=== PATIENT | male | born 1935 | race Hispanic/Latino ===

== ENCOUNTER 2017-11-09 07:02 | Inpatient (IN) | payer MEDICARE ==
[~2017-11-09] VITALS: Ht 162.6 cm; Wt 102.1 kg
[2017-11-09 00:40] VITALS: BP 112/61
[~2017-11-09 07:02] MED LIST: AEC81 PO; DEXT1DRO OP; FAMO20TA8 PO; FINA5TAB41 PO; LINA145C PO; LISI-613 PO; OMEP40CA37 PO; TRAM50TA4 PO; VENL75 PO
[2017-11-09] MEDS ORDERED: ONDANSETRON HCL MDV 20ML 2 MG/ML VIAL ONE (07:40)
[2017-11-09] MEDS ORDERED: MORPHINE SULFATE 4 MG/1ML SYG ONE (07:41)
[2017-11-09 07:51] LABS: APPEARANCE,URINE Clear (CLEAR); BASOPHILS % (AUTO) 0.9 % (0.0-5.0); BILIRUBIN,URINE Negative (NEGATIVE); COLOR,URINE Dark Yellow (YELLOW); EOSINOPHILS % (AUTO) 2.1 % (0.0-8.0); GLUCOSE, URINE (UA) Negative (NEGATIVE); HEMATOCRIT 42.2 % (42-54); KETONES,URINE Negative (NEGATIVE); LEUKOCYTE ESTERASE ,URINE Negative (NEGATIVE); LYMPHOCYTES % (AUTO) 24.5 % (21.0-51.0); MEAN CORPUSCULAR HEMOGLOBIN 26.2 pg (27.0-33.0); MEAN CORPUSCULAR HGB CONC 32.6 g/dL (32.0-36.0); MEAN CORPUSCULAR VOLUME 80.6 fL (79-99); MONOCYTES % (AUTO) 7.8 % (3.0-13.0); NEUTROPHILS % (AUTO) 64.7 % (40.0-77.0); NITRATE,URINE Negative (NEGATIVE); OCCULT BLOOD,URINE Large (NEGATIVE); PLATELET COUNT (AUTO) 307 K/uL (130-400); PROTEIN,URINE POS 1+ (NEGATIVE); RED BLOOD CELL COUNT(AUTO) 5.23 MIL/uL (4.50-6.20); RED CELL DISTRIBUTION WIDTH 17.3 % (11.0-15.5); WHITE BLOOD COUNT (AUTO) 9.6 K/uL (4.8-10.8)
[2017-11-09] MEDS ORDERED: SODIUM CHLORIDE 0.9% 1000ML 1,000 ML IV ONE (08:08)
[2017-11-09 08:11] LABS: BACTERIA,URINE Rare /HPF (None Seen); SQUAMOUS EPITHELIAL CELL,UR Rare /HPF (0-2)
[2017-11-09 08:20] LABS: CREATININE 1.2 mg/dL (0.5-1.5); POTASSIUM 4.1 mmol/L (3.5-5.1)
[2017-11-09 08:25] LABS: ALBUMIN 3.6 g/dL (3.5-5.0); BILIRUBIN,TOTAL 0.3 mg/dL (0.2-1.0); TOTAL PROTEIN, SERUM 7.6 g/dL (6.0-8.3)
[2017-11-09 12:13] LABS: OCCULT BLOOD STOOL SINGLE ONLY POSITIVE (NEGATIVE)
[2017-11-09] MEDS ORDERED: FENTANYL CITRATE PF 50 MCG/1 ML 2ML VIAL ONE (15:20)
[2017-11-09] MEDS ORDERED: METRONIDAZOLE 500MG/100ML BAG 0 ML ONE (15:52)
[2017-11-09] MEDS ORDERED: LEVOFLOXACIN 750 MG/D5W 150 ML 150 ML ONE (17:03)
[2017-11-09] MEDS ORDERED: HYDROMORPHONE HCL 0.5 MG/0.5 ML ML IVP PRN (20:00)
[2017-11-09] MEDS ORDERED: ONDANSETRON HCL MDV 20ML 2 MG/ML VIAL IVP PRN (20:00)
[2017-11-09] MEDS: DEXTROSE 5 %-0.45 % NACL 1,000 ML IV SCH (20:00)
[2017-11-09] MEDS ORDERED: COMPOUND IV REFRIGERATED 1 EACH IVSOLN MISC PRN (21:00)
[2017-11-09] MEDS ORDERED: COMPOUND IV MISC 1 EACH IVSOLN MISC PRN (21:00)
[2017-11-09 21:14] VITALS: BP 133/75
[2017-11-09] MEDS ORDERED: METRONIDAZOLE 500MG/100ML BAG 100 ML ONE (21:48)
[2017-11-09] MEDS ORDERED: METRONIDAZOLE 250MG/50ML 50 ML IV SCH (22:00)
[2017-11-10] MEDS: DEXTROSE 5 %-0.45 % NACL 1,000 ML IV SCH ×3 (03:16→20:00)
[2017-11-10 04:00] VITALS: BP 106/67
[2017-11-10 05:51] LABS: HEMATOCRIT 36.1 % (42-54); MEAN CORPUSCULAR HGB CONC 34.6 g/dL (32.0-36.0); MEAN CORPUSCULAR VOLUME 80.8 fL (79-99); PLATELET COUNT (AUTO) 277 K/uL (130-400); RED BLOOD CELL COUNT(AUTO) 4.47 MIL/uL (4.50-6.20); RED CELL DISTRIBUTION WIDTH 17.6 % (11.0-15.5); WHITE BLOOD COUNT (AUTO) 8.1 K/uL (4.8-10.8)
[2017-11-10 06:02] LABS: ALBUMIN 2.9 g/dL (3.5-5.0); BILIRUBIN,TOTAL 0.3 mg/dL (0.2-1.0); POTASSIUM 3.8 mmol/L (3.5-5.1); TOTAL PROTEIN, SERUM 6.4 g/dL (6.0-8.3)
[2017-11-10 08:14] VITALS: BP 133/79
[2017-11-10] MEDS ORDERED: PRED10TA3 PO (11:22)
[2017-11-10] MEDS ORDERED: SERT100T12 PO (11:22)
[2017-11-10] MEDS ORDERED: PRED5TAB PO (11:22)
[2017-11-10 11:58] VITALS: BP 122/68
[2017-11-10] MEDS: METRONIDAZOLE 500MG/100ML BAG 100 ML IV SCH ×2 (14:24→21:12)
[2017-11-10 15:44] VITALS: BP 127/69
[2017-11-10] MEDS: POLYETHYLENE GLYCOL 3350 17 GM POWD.PACK PO SCH (17:00)
[2017-11-10 19:35] VITALS: BP 127/74
[2017-11-10 23:48] VITALS: BP 111/58
[2017-11-11 03:25] VITALS: BP 131/76
[2017-11-11] MEDS: DEXTROSE 5 %-0.45 % NACL 1,000 ML IV SCH ×2 (04:00→09:26)
[2017-11-11] MEDS: METRONIDAZOLE 500MG/100ML BAG 100 ML IV SCH ×3 (05:27→21:49)
[2017-11-11 08:05] VITALS: BP 140/75
[2017-11-11] MEDS: PANTOPRAZOLE SODIUM 40 MG TABLET.DR PO SCH (09:22)
[2017-11-11] MEDS: POLYETHYLENE GLYCOL 3350 17 GM POWD.PACK PO SCH (09:23)
[2017-11-11 11:56] VITALS: BP 143/71
[2017-11-11 15:55] VITALS: BP 131/77
[2017-11-11] MEDS ORDERED: LEVOFLOXACIN 750 MG/D5W 150 ML 150 ML IV SCH (17:00)
[2017-11-11 19:00] VITALS: BP 142/80
[2017-11-11 23:58] VITALS: BP 111/54
[2017-11-12] VITALS (13 sets, daily range): BP systolic 117–137; BP diastolic 62–89
[2017-11-12] MEDS: DEXTROSE 5 %-0.45 % NACL 1,000 ML IV SCH ×2 (04:00→04:18)
[2017-11-12 04:09] LABS: HEMATOCRIT 36.8 % (42-54); MEAN CORPUSCULAR HEMOGLOBIN 26.7 pg (27.0-33.0); MEAN CORPUSCULAR HGB CONC 33.3 g/dL (32.0-36.0); MEAN CORPUSCULAR VOLUME 80.1 fL (79-99); PLATELET COUNT (AUTO) 269 K/uL (130-400); RED CELL DISTRIBUTION WIDTH 17.1 % (11.0-15.5); WHITE BLOOD COUNT (AUTO) 8.2 K/uL (4.8-10.8)
[2017-11-12 04:30] LABS: CREATININE 1.2 mg/dL (0.5-1.5); POTASSIUM 3.7 mmol/L (3.5-5.1)
[2017-11-12] MEDS: METRONIDAZOLE 500MG/100ML BAG 100 ML IV SCH (05:59)
[2017-11-12] MEDS: POLYETHYLENE GLYCOL 3350 17 GM POWD.PACK PO SCH (08:25)
[2017-11-12] MEDS: PANTOPRAZOLE SODIUM 40 MG TABLET.DR PO SCH (08:25)
[2017-11-12] MEDS ORDERED: SODIUM CHLORIDE 0.9% 1000ML 1,000 ML IV ONE (09:36)
== END 2017-11-12 13:35 | disposition home or self-care (01) | DRG 392 ==
LOC: EDH 07:02 → EDHIP 14:56 → OBSVTOIN 14:56 → 3CH 19:33
PROVIDERS: ADMIT Internal Medicine; ATTEND Internal Medicine
PROC: 0DB68ZX Excision of Stomach, Via Natural or Artificial Opening Endoscopic, Diagnostic (ICD-10-PCS; principal; 2017-11-12)
DX: K52.9 Noninfective gastroenteritis and colitis, unspecified (principal); E86.0 Dehydration; K57.92 Diverticulitis of intestine, part unspecified, without perforation or abscess without bleeding; E78.5 Hyperlipidemia, unspecified; I12.9 Hypertensive chronic kidney disease with stage 1 through stage 4 chronic kidney disease, or unspecified chronic kidney disease; N18.9 Chronic kidney disease, unspecified; K31.7 Polyp of stomach and duodenum; K31.89 Other diseases of stomach and duodenum; Z86.73 Personal history of transient ischemic attack (TIA), and cerebral infarction without residual deficits
CPT/HCPCS: 36415; 74176; 80048; 80053; 81001; 82270; 85025; 85027; 87046; 87205; 87324; 88305; 88312; J1170; J1956; J2270; J3010; J3490; J7030; J7042

== ENCOUNTER → 2018-04-03 | Outpatient (CLI) | payer MEDICARE ==
[~2018-04-03] MED LIST changes: +PRED10TA3 PO; +PRED5TAB PO; +SERT100T12 PO
== END | disposition home or self-care (01) ==
LOC: RAH 16:13
PROVIDERS: ATTEND Internal Medicine
DX: M16.11 Unilateral primary osteoarthritis, right hip (principal)
CPT/HCPCS: 73502

== ENCOUNTER 2018-06-12 15:47 | Observation (INO) | payer MEDICARE ==
[~2018-06-12] VITALS: Ht 160 cm; Wt 106.8 kg
[2018-06-12 16:37] LABS: BASOPHILS % (AUTO) 0.9 % (0.0-5.0); EOSINOPHILS % (AUTO) 4.8 % (0.0-8.0); HEMATOCRIT 41.9 % (42-54); LYMPHOCYTES % (AUTO) 21.2 % (21.0-51.0); MEAN CORPUSCULAR HEMOGLOBIN 26.8 pg (27.0-33.0); MEAN CORPUSCULAR HGB CONC 31.5 g/dL (32.0-36.0); MONOCYTES % (AUTO) 8.3 % (3.0-13.0); NEUTROPHILS % (AUTO) 64.8 % (40.0-77.0); NUCLEATED RED BLOOD CELLS 0.1 % (0.0-0.19); PLATELET COUNT (AUTO) 326 K/uL (130-400); RED BLOOD CELL COUNT(AUTO) 4.93 MIL/uL (4.50-6.20); RED CELL DISTRIBUTION WIDTH 16.9 % (11.0-15.5); WHITE BLOOD COUNT (AUTO) 8.5 K/uL (4.8-10.8)
[2018-06-12 16:45] LABS: CREATININE 1.1 mg/dL (0.5-1.5); POTASSIUM 3.8 mmol/L (3.5-5.1)
[2018-06-12 16:50] LABS: ALBUMIN 3.2 g/dL (3.5-5.0); BILIRUBIN,DIRECT 0.1 mg/dL (0.0-0.3); BILIRUBIN,TOTAL 0.2 mg/dL (0.2-1.0); TOTAL PROTEIN, SERUM 7.2 g/dL (6.0-8.3)
[2018-06-12] MEDS ORDERED: CLONIDINE HCL 0.1 MG TABLET PO PRN (17:00)
[2018-06-12] MEDS ORDERED: ALBUTEROL SULFATE 0.083% 2.5 MG/3 ML INH IH PRN (17:00)
[2018-06-12] MEDS ORDERED: GUAIFENESIN-DM 200/20 MG 10 ML PO PRN (17:00)
[2018-06-12] MEDS ORDERED: ZOLPIDEM TARTRATE 5 MG TAB PO PRN (17:00)
[2018-06-12] MEDS ORDERED: ONDANSETRON HCL 4 MG/2 ML VIAL IVP PRN (17:00)
[2018-06-12] MEDS: CEFTRIAXONE SODIUM 1 GM IVP SCH (17:00)
[2018-06-12] MEDS: METHYLPREDNISOLONE SOD SUCC 125MG/2ML VIAL IVP SCH ×2 (17:00→21:00)
[2018-06-12] MEDS ORDERED: METHYLPREDNISOLONE SOD SUCC 40MG/ML 1ML ONE (17:02)
[2018-06-12] MEDS ORDERED: SODIUM CHLORIDE 0.9% 50 ML IV ONE (17:03)
[2018-06-12] MEDS ORDERED: CEFTRIAXONE SODIUM 1 GM ONE (17:03)
[2018-06-12] MEDS: IPRATROPIUM/ALBUTEROL SULFATE 3 ML SOLUTION IH SCH (17:53)
[2018-06-12] MEDS ORDERED: LEVOFLOXACIN 500 MG/D5W 100 ML 100 ML IV SCH (18:00)
[2018-06-12] MEDS ORDERED: LEVOFLOXACIN 500 MG/D5W 100 ML 100 ML ONE (18:40)
[2018-06-12] MEDS ORDERED: 1/2 NORMAL SALINE 1,000 ML IV ONE (19:45)
[2018-06-12] MEDS: FAMOTIDINE 20MG TAB 20 MG TAB PO SCH (22:58)
[2018-06-12] MEDS: 1/2 NORMAL SALINE 1,000 ML IV SCH (22:58)
[2018-06-12 23:00] VITALS: BP 151/85
[2018-06-13] MEDS: IPRATROPIUM/ALBUTEROL SULFATE 3 ML SOLUTION IH SCH ×5 (01:00→23:25)
[2018-06-13] MEDS ORDERED: SERT100T12 PO (01:22)
[2018-06-13] MEDS ORDERED: AUD IH (01:22)
[2018-06-13] MEDS ORDERED: FINA5TAB2 PO (01:22)
[2018-06-13] MEDS ORDERED: PANT40TA25 PO (01:22)
[2018-06-13 03:30] VITALS: BP 118/55
[2018-06-13 04:54] LABS: MEAN CORPUSCULAR HEMOGLOBIN 27.9 pg (27.0-33.0); MEAN CORPUSCULAR HGB CONC 32.8 g/dL (32.0-36.0); PLATELET COUNT (AUTO) 342 K/uL (130-400); RED BLOOD CELL COUNT(AUTO) 4.71 MIL/uL (4.50-6.20); RED CELL DISTRIBUTION WIDTH 16.6 % (11.0-15.5); WHITE BLOOD COUNT (AUTO) 9.2 K/uL (4.8-10.8)
[2018-06-13 05:09] LABS: ALANINE AMINOTRANSFERASE 19 U/L (12-78); ALBUMIN 3.1 g/dL (3.5-5.0); ASPARTATE AMINOTRANSFERASE 14 U/L (10-37); BILIRUBIN,DIRECT < 0.1 mg/dL (0.0-0.3); BILIRUBIN,TOTAL 0.2 mg/dL (0.2-1.0); CARBON DIOXIDE 31 mmol/L (21-32); CHLORIDE 105 mmol/L (101-111); CREATININE 1.1 mg/dL (0.5-1.5); GLOMERULAR FILTR. RATE CALC 68 mL/min (>60); GLUCOSE,RANDOM 138 mg/dL (70-105); POTASSIUM 4.4 mmol/L (3.5-5.1); SODIUM SERUM 143 mmol/L (136-145); TOTAL PROTEIN, SERUM 6.9 g/dL (6.0-8.3); UREA NITROGEN, BLOOD 18 mg/dL (7-18)
[2018-06-13] MEDS: FAMOTIDINE 20MG TAB 20 MG TAB PO SCH ×2 (08:01→20:47)
[2018-06-13] MEDS: ENOXAPARIN SODIUM 40 MG/0.4 ML SYRINGE SQ SCH (08:01)
[2018-06-13 08:06] VITALS: BP 145/70
[2018-06-13] MEDS: METHYLPREDNISOLONE SOD SUCC 125MG/2ML VIAL IVP SCH ×2 (09:00→20:47)
[2018-06-13 11:49] VITALS: BP 140/69
[2018-06-13] MEDS: 1/2 NORMAL SALINE 1,000 ML IV SCH (13:00)
[2018-06-13] MEDS: CEFTRIAXONE SODIUM 1 GM IVP SCH (15:20)
[2018-06-13 16:36] VITALS: BP 138/75
[2018-06-13 20:00] VITALS: BP 131/65
[2018-06-14 00:33] VITALS: BP 136/77
[2018-06-14 03:57] VITALS: BP 131/71
[2018-06-14] MEDS: IPRATROPIUM/ALBUTEROL SULFATE 3 ML SOLUTION IH SCH ×2 (06:09→11:12)
[2018-06-14 06:15] LABS: MEAN CORPUSCULAR HEMOGLOBIN 27.3 pg (27.0-33.0); MEAN CORPUSCULAR HGB CONC 32.1 g/dL (32.0-36.0); PLATELET COUNT (AUTO) 315 K/uL (130-400); RED CELL DISTRIBUTION WIDTH 17.1 % (11.0-15.5); WHITE BLOOD COUNT (AUTO) 16.4 K/uL (4.8-10.8)
[2018-06-14 06:26] LABS: BILIRUBIN,TOTAL 0.2 mg/dL (0.2-1.0); CREATININE 1.1 mg/dL (0.5-1.5); POTASSIUM 4.4 mmol/L (3.5-5.1); TOTAL PROTEIN, SERUM 6.7 g/dL (6.0-8.3)
[2018-06-14 08:00] VITALS: BP 121/72
[2018-06-14] MEDS: FAMOTIDINE 20MG TAB 20 MG TAB PO SCH (09:05)
[2018-06-14] MEDS: ENOXAPARIN SODIUM 40 MG/0.4 ML SYRINGE SQ SCH (09:05)
[2018-06-14] MEDS: METHYLPREDNISOLONE SOD SUCC 125MG/2ML VIAL IVP SCH (09:05)
== END 2018-06-14 12:24 | disposition home or self-care (01) ==
LOC: EDH 15:47 → EDHIP 17:15 → 4CH 21:43
PROVIDERS: ADMIT Internal Medicine; ATTEND Internal Medicine
DX: J44.0 Chronic obstructive pulmonary disease with (acute) lower respiratory infection (principal); J18.9 Pneumonia, unspecified organism; J44.1 Chronic obstructive pulmonary disease with (acute) exacerbation; J96.90 Respiratory failure, unspecified, unspecified whether with hypoxia or hypercapnia; N40.0 Benign prostatic hyperplasia without lower urinary tract symptoms; I12.9 Hypertensive chronic kidney disease with stage 1 through stage 4 chronic kidney disease, or unspecified chronic kidney disease; N18.3 Chronic kidney disease, stage 3 (moderate); G20 Parkinson's disease; F32.9 Major depressive disorder, single episode, unspecified; Z79.899 Other long term (current) drug therapy
CPT/HCPCS: 36415 ×3; 71045; 80048; 80053 ×2; 80076; 82248; 85025; 85027 ×2; 94640 ×8; 94664; 96372 ×2; 96374; 96375; 96376; 99284; A4218; G0378 ×43; J0696 ×2; J1650 ×2; J1956; J2405; J2920; J2930 ×3

== ENCOUNTER 2018-08-26 17:13 | Inpatient (IN) | payer MEDICARE ==
[~2018-08-26] VITALS: Ht 167.6 cm; Wt 106.6 kg
[~2018-08-26 17:13] MED LIST changes: +AUD IH; +FINA5TAB2 PO; -FINA5TAB41 PO; +PANT40TA25 PO; -PRED10TA3 PO; -PRED5TAB PO
[2018-08-26 18:46] LABS: EOSINOPHILS % (AUTO) 5.5 % (0.0-8.0); HEMATOCRIT 42.7 % (42-54); LYMPHOCYTES % (AUTO) 18.8 % (21.0-51.0); MEAN CORPUSCULAR HEMOGLOBIN 27.9 pg (27.0-33.0); MEAN CORPUSCULAR HGB CONC 32.8 g/dL (32.0-36.0); MONOCYTES % (AUTO) 7.8 % (3.0-13.0); NEUTROPHILS % (AUTO) 66.9 % (40.0-77.0); PLATELET COUNT (AUTO) 302 K/uL (130-400); RED BLOOD CELL COUNT(AUTO) 5.02 MIL/uL (4.50-6.20); RED CELL DISTRIBUTION WIDTH 16.6 % (11.0-15.5); WHITE BLOOD COUNT (AUTO) 9.1 K/uL (4.8-10.8)
[2018-08-26 19:05] LABS: CARBON DIOXIDE 30 mmol/L (21-32); CHLORIDE 103 mmol/L (101-111); CREATININE 1.1 mg/dL (0.5-1.5); GLOMERULAR FILTR. RATE CALC 68 mL/min (>60); GLUCOSE,RANDOM 126 mg/dL (70-105); POTASSIUM 3.8 mmol/L (3.5-5.1); SODIUM SERUM 144 mmol/L (136-145); UREA NITROGEN, BLOOD 19 mg/dL (7-18)
[2018-08-26 19:08] LABS: ALANINE AMINOTRANSFERASE 22 U/L (12-78); ALBUMIN 3.6 g/dL (3.5-5.0); ASPARTATE AMINOTRANSFERASE 23 U/L (10-37); BILIRUBIN,DIRECT < 0.1 mg/dL (0.0-0.3); BILIRUBIN,TOTAL 0.3 mg/dL (0.2-1.0); TOTAL PROTEIN, SERUM 7.2 g/dL (6.0-8.3)
[2018-08-26] MEDS ORDERED: LEVO500T2 PO (19:55)
[2018-08-26] MEDS ORDERED: METR500T PO (19:55)
[2018-08-26] MEDS ORDERED: NITR100C4 PO (19:55)
[2018-08-26 20:00] VITALS: BP 147/83
[2018-08-26] MEDS ORDERED: ALBUTEROL SULFATE 0.083% 2.5 MG/3 ML INH IH PRN (20:00)
[2018-08-26] MEDS ORDERED: DiphenhydrAMINE HCL 50 MG/ML VIAL IV PRN (20:00)
[2018-08-26] MEDS ORDERED: NITROGLYCERIN 0.4 MG SL TAB SL PRN (20:00)
[2018-08-26] MEDS ORDERED: LACTULOSE 20 GM/30 ML UDCUP PO PRN (20:00)
[2018-08-26] MEDS ORDERED: ZOLPIDEM TARTRATE 5 MG TAB PO PRN (20:00)
[2018-08-26] MEDS ORDERED: ONDANSETRON HCL MDV 20ML 2 MG/ML VIAL IVP PRN (20:00)
[2018-08-26] MEDS ORDERED: ACETAMINOPHEN 325 MG TAB PO PRN (20:00)
[2018-08-26] MEDS: METRONIDAZOLE 500 MG TABLET PO SCH (21:31)
[2018-08-26] MEDS: SERTRALINE HCL 50 MG TABLET PO SCH (21:31)
[2018-08-26] MEDS: AZITHROMYCIN 500MG+NS 250ML 250 ML IV SCH (21:31)
[2018-08-26] MEDS: NITROFURANTOIN MONOHYD/M-CRYST 100 MG CAPSULE PO SCH (21:31)
[2018-08-26] MEDS: CEFTRIAXONE SODIUM 1 GM IVP SCH (21:31)
[2018-08-26] MEDS: FAMOTIDINE 20MG TAB 20 MG TAB PO SCH (21:31)
[2018-08-26] MEDS: METHYLPREDNISOLONE SOD SUCC 125MG/2ML VIAL IVP SCH (21:31)
[2018-08-26] MEDS: SODIUM CHLORIDE 0.9% 1000ML 1,000 ML IV SCH (21:31)
[2018-08-26] MEDS: ENOXAPARIN SODIUM 30 MG/0.3 ML SQ SCH (21:45)
[2018-08-26] MEDS: IPRATROPIUM/ALBUTEROL SULFATE 3 ML SOLUTION IH SCH ×2 (21:52→23:30)
--- NOTE | 2018-08-26 22:25 | NUR ---
X-RAY RADIOLOGY IN TO DO CHEST X-RAY AT BEDSIDE. PT STILL WITH SOB WITH EXERTION. PROVIDED ANOTHER PILLOW FOR USE. RE-POSITIONED COMFORTABLY IN BED WITH HOB ELEVATED. KEPT ON O2 AT 2LPM VIA NC. KEPT COMFORTABLE IN BED. CALL LIGHT WITHIN REACH. WILL MONITOR PT.
[2018-08-26 23:23] VITALS: BP 136/76
[2018-08-27 03:11] VITALS: BP 116/70
[2018-08-27 04:53] LABS: HEMATOCRIT 41.1 % (42-54); MEAN CORPUSCULAR HEMOGLOBIN 27.8 pg (27.0-33.0); MEAN CORPUSCULAR HGB CONC 32.5 g/dL (32.0-36.0); MEAN CORPUSCULAR VOLUME 85.4 fL (79-99); PLATELET COUNT (AUTO) 278 K/uL (130-400); RED BLOOD CELL COUNT(AUTO) 4.82 MIL/uL (4.50-6.20); RED CELL DISTRIBUTION WIDTH 16.7 % (11.0-15.5); WHITE BLOOD COUNT (AUTO) 6.9 K/uL (4.8-10.8)
[2018-08-27 05:11] LABS: ALANINE AMINOTRANSFERASE 17 U/L (12-78); ALBUMIN 3.3 g/dL (3.5-5.0); ASPARTATE AMINOTRANSFERASE 23 U/L (10-37); BILIRUBIN,DIRECT < 0.1 mg/dL (0.0-0.3); BILIRUBIN,TOTAL 0.2 mg/dL (0.2-1.0); CARBON DIOXIDE 29 mmol/L (21-32); CHLORIDE 104 mmol/L (101-111); GLOMERULAR FILTR. RATE CALC 76 mL/min (>60); GLUCOSE,RANDOM 166 mg/dL (70-105); POTASSIUM 4.3 mmol/L (3.5-5.1); SODIUM SERUM 143 mmol/L (136-145); TOTAL PROTEIN, SERUM 6.7 g/dL (6.0-8.3); UREA NITROGEN, BLOOD 16 mg/dL (7-18)
[2018-08-27] MEDS: METRONIDAZOLE 500 MG TABLET PO SCH ×3 (05:20→20:41)
[2018-08-27] MEDS: IPRATROPIUM/ALBUTEROL SULFATE 3 ML SOLUTION IH SCH ×3 (06:15→17:39)
[2018-08-27 08:00] VITALS: BP 143/83
[2018-08-27] MEDS ORDERED: LEVOFLOXACIN 500 MG TABLET PO SCH (09:00)
[2018-08-27] MEDS ORDERED: FAMOTIDINE 20MG TAB 20 MG TAB PO SCH (09:00)
[2018-08-27] MEDS: METHYLPREDNISOLONE SOD SUCC 125MG/2ML VIAL IVP SCH ×2 (09:00→20:42)
[2018-08-27] MEDS: Linaclotide (Linzess) 145 MCG PO SCH (09:00)
[2018-08-27] MEDS: PANTOPRAZOLE SODIUM 40 MG TABLET.DR PO SCH (09:01)
[2018-08-27] MEDS: FAMOTIDINE 20MG TAB 20 MG TAB PO SCH ×2 (09:01→20:41)
[2018-08-27] MEDS: LISINOPRIL 20 MG TABLET PO SCH (09:01)
[2018-08-27] MEDS: FINASTERIDE 5 MG TABLET PO SCH (09:01)
[2018-08-27] MEDS: SERTRALINE HCL 50 MG TABLET PO SCH ×2 (09:01→20:41)
[2018-08-27] MEDS: ENOXAPARIN SODIUM 30 MG/0.3 ML SQ SCH (09:02)
[2018-08-27] MEDS: NITROFURANTOIN MONOHYD/M-CRYST 100 MG CAPSULE PO SCH ×2 (09:05→20:42)
[2018-08-27 12:00] VITALS: BP 129/59
[2018-08-27 14:29] LABS: CREATINE KINASE, TOTAL 105 U/L (21-232); MYOGLOBIN 136 ng/mL (10-92); TROPONIN I < 0.04 ng/mL (0.00-0.06)
--- NOTE | 2018-08-27 15:49 | NUR ---
DCP CM met with pt and family discussed dc plans. Pt is independent prior to admission, lives at home with spouse, daughter lives close by. Pt has a cane, and provider 4hrs/day daughter Negra is pt's provider. Feels safe to go back home, spouse and daughter able to assist with transportation and needs as necessary. DC plan to home once stable. CM to cont to follow up. Addendum: 08/27/18 at 1550 by ANALIA FARLEY LVN CM Amended: Links added.
[2018-08-27 16:00] VITALS: BP 143/88
[2018-08-27] MEDS: ACETYLCYSTEINE 20% 200MG/ML 4ML VIAL IH SCH ×2 (17:45→22:53)
[2018-08-27 19:54] LABS: CREATINE KINASE, TOTAL 169 U/L (21-232); MYOGLOBIN 229 ng/mL (10-92); TROPONIN I < 0.04 ng/mL (0.00-0.06)
[2018-08-27 20:00] VITALS: BP 133/80
[2018-08-27] MEDS: CEFTRIAXONE SODIUM 1 GM IVP SCH (20:42)
[2018-08-27] MEDS: AZITHROMYCIN 500MG+NS 250ML 250 ML IV SCH (20:42)
[2018-08-27] MEDS: SODIUM CHLORIDE 0.9% 1000ML 1,000 ML IV SCH (20:43)
[2018-08-28] VITALS: BP 144/80
[2018-08-28 02:13] LABS: CREATINE KINASE, TOTAL 275 U/L (21-232); MYOGLOBIN 334 ng/mL (10-92); TROPONIN I < 0.04 ng/mL (0.00-0.06)
[2018-08-28 04:00] VITALS: BP 126/93
[2018-08-28] MEDS: METRONIDAZOLE 500 MG TABLET PO SCH ×2 (04:24→16:18)
[2018-08-28] MEDS: IPRATROPIUM/ALBUTEROL SULFATE 3 ML SOLUTION IH SCH ×3 (06:31→10:58)
[2018-08-28] MEDS: ACETYLCYSTEINE 20% 200MG/ML 4ML VIAL IH SCH ×2 (06:32→10:58)
[2018-08-28 08:00] VITALS: BP 137/77
[2018-08-28] MEDS: Linaclotide (Linzess) 145 MCG PO SCH (09:00)
[2018-08-28] MEDS: FAMOTIDINE 20MG TAB 20 MG TAB PO SCH (09:12)
[2018-08-28] MEDS: NITROFURANTOIN MONOHYD/M-CRYST 100 MG CAPSULE PO SCH (09:12)
[2018-08-28] MEDS: METHYLPREDNISOLONE SOD SUCC 125MG/2ML VIAL IVP SCH (09:12)
[2018-08-28] MEDS: SERTRALINE HCL 50 MG TABLET PO SCH (09:13)
[2018-08-28] MEDS: FINASTERIDE 5 MG TABLET PO SCH (09:13)
[2018-08-28] MEDS: PANTOPRAZOLE SODIUM 40 MG TABLET.DR PO SCH (09:13)
[2018-08-28] MEDS: LISINOPRIL 20 MG TABLET PO SCH (09:13)
[2018-08-28] MEDS: ENOXAPARIN SODIUM 30 MG/0.3 ML SQ SCH (09:14)
[2018-08-28] MEDS: SODIUM CHLORIDE 0.9% 1000ML 1,000 ML IV SCH (11:30)
--- NOTE | 2018-08-28 17:55 | NUR ---
PT D/C HOME PT AOX3, STABLE AND READY FOR D/C, D/C INSTRUCTION GIVEN, PT VERBALIZED UNDERSTANDING, INSTRUCTION TO FOLLOW UP WITH PRIMARY CARE PROVIDER, TAKE ABX THOROUGHLY AND FULLY, IV OUT, NO COMPLICATION NOTED, PT D/C AND ACCOMPANIED BY SPOUSE HOME.
== END 2018-08-28 17:50 | disposition home or self-care (01) | DRG 191 ==
LOC: EDH 17:13 → OBSVTOIN 17:14 → INTOOBSV 17:14 → EDHIP 17:14 → 3AH 19:01
PROVIDERS: ADMIT Internal Medicine; ATTEND Internal Medicine
DX: J44.1 Chronic obstructive pulmonary disease with (acute) exacerbation (principal); N39.0 Urinary tract infection, site not specified; I10 Essential (primary) hypertension; I45.10 Unspecified right bundle-branch block; N40.0 Benign prostatic hyperplasia without lower urinary tract symptoms; F32.9 Major depressive disorder, single episode, unspecified; I25.10 Atherosclerotic heart disease of native coronary artery without angina pectoris; J20.9 Acute bronchitis, unspecified; J44.0 Chronic obstructive pulmonary disease with (acute) lower respiratory infection
CPT/HCPCS: 36415; 71046; 80048; 80076; 82550; 83874; 84484; 85025; 85027; 87071; 87205; 93306; 94640; 94664; A4218; G0378; J0456; J0696; J1650; J2930; J7030; J7608

== ENCOUNTER 2018-11-22 06:31 | Observation (INO) | payer MEDICARE ==
[~2018-11-22 06:31] MED LIST changes: -AEC81 PO; -DEXT1DRO OP; -OMEP40CA37 PO; -TRAM50TA4 PO; -VENL75 PO
[2018-11-22 07:13] LABS: EOSINOPHILS % (AUTO) 1.5 % (0.0-8.0); HEMATOCRIT 39.6 % (42-54); LYMPHOCYTES % (AUTO) 11.3 % (21.0-51.0); MEAN CORPUSCULAR HEMOGLOBIN 25.9 pg (27.0-33.0); MEAN CORPUSCULAR HGB CONC 31.9 g/dL (32.0-36.0); MEAN CORPUSCULAR VOLUME 81.2 fL (79-99); MONOCYTES % (AUTO) 6.4 % (3.0-13.0); NEUTROPHILS % (AUTO) 79.8 % (40.0-77.0); PLATELET COUNT (AUTO) 360 K/uL (130-400); RED BLOOD CELL COUNT(AUTO) 4.87 MIL/uL (4.50-6.20); RED CELL DISTRIBUTION WIDTH 16.3 % (11.0-15.5); WHITE BLOOD COUNT (AUTO) 14.1 K/uL (4.8-10.8)
[2018-11-22 07:15] LABS: APPEARANCE,URINE TURBID (CLEAR); BILIRUBIN,URINE SMALL (NEGATIVE); COLOR,URINE YELLOW (YELLOW); GLUCOSE, URINE (UA) NEGATIVE (NEGATIVE); KETONES,URINE 5 mg/dL (NEGATIVE); LEUKOCYTE ESTERASE ,URINE NEGATIVE (NEGATIVE); NITRATE,URINE NEGATIVE (NEGATIVE); OCCULT BLOOD,URINE MODERATE (NEGATIVE); PH,URINE 5.5 (5.0-8.0); PROTEIN,URINE 30 mg/dL (NEGATIVE)
[2018-11-22 07:27] LABS: CREATININE 1.7 mg/dL (0.5-1.5)
[2018-11-22 07:30] LABS: INR 0.93 (0.85-1.15); PARTIAL THROMBOPLASTIN TIME 26.1 SEC (26.3-35.5); PROTHROMBIN TIME 9.8 SEC (9.6-11.6)
[2018-11-22 07:33] LABS: ALBUMIN 3.7 g/dL (3.5-5.0); BILIRUBIN,TOTAL 0.3 mg/dL (0.2-1.0); TOTAL PROTEIN, SERUM 7.6 g/dL (6.0-8.3)
[2018-11-22] MEDS ORDERED: MORPHINE SULFATE 4 MG/1ML SYG ONE (07:40)
[2018-11-22 07:44] LABS: AMORPHOUS SEDIMENT,UR Many /LPF (None Seen); BACTERIA,URINE Few /HPF (None Seen); CALCIUM OXALATE CRYSTALS,UR Few /LPF (None Seen); RBC,URINE 0-1 /HPF (0-1); SQUAMOUS EPITHELIAL CELL,UR Rare /HPF (0-2)
[2018-11-22] MEDS ORDERED: CEFTRIAXONE SODIUM 1 GM ONE (08:20)
[2018-11-22] MEDS ORDERED: HYDROMORPHONE 1 MG/1 ML AMP ONE (08:41)
[2018-11-22] MEDS ORDERED: SODIUM CHLORIDE 0.9% 10 ML VIAL IVP PRN (11:30)
[2018-11-22] MEDS ORDERED: LEVOFLOXACIN 500 MG/D5W 100 ML 100 ML IV SCH (11:30)
[2018-11-22] MEDS ORDERED: ACETAMINOPHEN 325 MG TAB PO PRN (11:30)
[2018-11-22] MEDS ORDERED: 1/2 NORMAL SALINE 1,000 ML IV SCH (11:30)
--- NOTE | 2018-11-22 12:10 | NUR ---
ER ADMIT TO ROOM 305, AWAKE,ALERT ORIENTED,IVF INFUSING VIA 18G RT. HAND. HAD LT. FLANK PAIN WHICH STARTED LAST NIGHT. PRESENTED TO ER BUT STATES WAS MEDICATED AND FEELS MUCH BETTER NOW. STATES HAD THIS PAIN IN THE PAST BUT NOT SEVERE.
[2018-11-22 13:19] VITALS: BP 116/64
[2018-11-22 16:00] VITALS: BP 111/64
--- NOTE | 2018-11-22 17:00 | NUR ---
CO OF FEELING DIZZY ABD STATES THIS HAS BEEN GOING ON FOR 2 TO 3 WEEKS, O2 SATS IN THE HIGH 80S, (88).PLACED ON 3 LITERS OF O2 AND SATS SHOT UP TO 98 RIGHT AWAY, HOPEFULLY WITH GOOS SATS DIZZY C/O WILL IMPROVE.
[2018-11-22 19:33] VITALS: BP 129/66
[2018-11-22] MEDS ORDERED: ALBUTEROL SULFATE 0.083% 2.5 MG/3 ML INH IH PRN (22:00)
[2018-11-23 00:20] VITALS: BP 132/73
[2018-11-23 04:17] VITALS: BP 111/41
[2018-11-23 06:16] LABS: HEMATOCRIT 34.3 % (42-54); MEAN CORPUSCULAR HEMOGLOBIN 26.4 pg (27.0-33.0); MEAN CORPUSCULAR HGB CONC 32.4 g/dL (32.0-36.0); MEAN CORPUSCULAR VOLUME 81.4 fL (79-99); NUCLEATED RED BLOOD CELLS 0.1 % (0.0-0.19); PLATELET COUNT (AUTO) 275 K/uL (130-400); RED BLOOD CELL COUNT(AUTO) 4.21 MIL/uL (4.50-6.20); RED CELL DISTRIBUTION WIDTH 16.3 % (11.0-15.5); WHITE BLOOD COUNT (AUTO) 7.3 K/uL (4.8-10.8)
[2018-11-23 06:36] LABS: ALBUMIN 2.9 g/dL (3.5-5.0); BILIRUBIN,TOTAL 0.2 mg/dL (0.2-1.0); CREATININE 1.1 mg/dL (0.5-1.5); POTASSIUM 3.9 mmol/L (3.5-5.1); TOTAL PROTEIN, SERUM 6.4 g/dL (6.0-8.3)
[2018-11-23 08:00] VITALS: BP 128/73
[2018-11-23] MEDS ORDERED: LISINOPRIL 20 MG TABLET PO SCH (09:00)
[2018-11-23] MEDS ORDERED: Linaclotide (Linzess) 145 MCG PO SCH (09:00)
[2018-11-23] MEDS ORDERED: FAMOTIDINE 20MG TAB 20 MG TAB PO SCH (09:00)
[2018-11-23] MEDS ORDERED: PANTOPRAZOLE SODIUM 40 MG TABLET.DR PO SCH (09:00)
[2018-11-23] MEDS ORDERED: FINASTERIDE 5 MG TABLET PO SCH (09:00)
[2018-11-23] MEDS ORDERED: SERTRALINE HCL 50 MG TABLET PO SCH (09:00)
[2018-11-23] MEDS ORDERED: CEFTRIAXONE SODIUM 1 GM IVP SCH (09:00)
[2018-11-23 11:00] VITALS: BP 125/62
[2018-11-23] MEDS ORDERED: CEPH-578 PO (15:13)
--- NOTE | 2018-11-23 16:43 | NUR ---
PATIENT WAS GIVEN ALL DISCHARGE INSTRUCTIONS AND FOLLOW-UP APPOINTMENT WITH PCP TOMORROW. HE WAS NOTIFIED TO PICK-UP HIS PRESCRIPTION WHICH I HAD CALLED TO HIS PREFERRED PHARMACY AND HE VERBALIZED UNDERSTANDING. IV LINE REMOVED WITHOUT COMPLICATION. PATIENT REQUESTED TO HAVE DINNER BEFORE HE LEAVES.
--- NOTE | 2018-11-23 16:46 | NUR ---
LEFT THE UNIT VIA W/C IN STABLE CONDITION IN CARE OF SPOUSE.
== END 2018-11-23 16:50 | disposition home or self-care (01) ==
LOC: EDH 06:31 → EDHIP 10:06 → 3BH 12:18
PROVIDERS: ADMIT Internal Medicine; ATTEND Internal Medicine
DX: N23 Unspecified renal colic (principal); N39.0 Urinary tract infection, site not specified; I10 Essential (primary) hypertension; R11.2 Nausea with vomiting, unspecified; I25.10 Atherosclerotic heart disease of native coronary artery without angina pectoris; J42 Unspecified chronic bronchitis; E78.5 Hyperlipidemia, unspecified; Z79.899 Other long term (current) drug therapy; Z79.01 Long term (current) use of anticoagulants
CPT/HCPCS: 36415 ×2; 74176; 80053 ×2; 81001; 82550; 83605 ×2; 83690; 84484; 85025; 85027; 85610; 85730; 87040; 87088; 94664; 96361 ×2; 96365; 96375; 99284; A4218; G0378 ×31; J0696 ×2; J1170; J1956; J2270

== ENCOUNTER 2018-12-09 11:15 | Inpatient (IN) | payer MEDICARE ==
[~2018-12-09] VITALS: Ht 162.6 cm; Wt 106.3 kg
[~2018-12-09 11:15] MED LIST changes: +ALBU8.5H8 IH; -AUD IH; +DOXY100C2 PO; +HYDR-4064 PO; -LINA145C PO; +LINA72CA PO; +MECL-129 PO
[2018-12-09] MEDS ORDERED: SODIUM CHLORIDE 0.9% 1000ML 1,000 ML IV ONE (11:22)
[2018-12-09 11:38] LABS: BASOPHILS % (AUTO) 0.7 % (0.0-5.0); EOSINOPHILS % (AUTO) 0.6 % (0.0-8.0); HEMATOCRIT 40.4 % (42-54); MEAN CORPUSCULAR HGB CONC 32.2 g/dL (32.0-36.0); MEAN CORPUSCULAR VOLUME 80.9 fL (79-99); MONOCYTES % (AUTO) 5.8 % (3.0-13.0); NEUTROPHILS % (AUTO) 75.9 % (40.0-77.0); PLATELET COUNT (AUTO) 408 K/uL (130-400); RED CELL DISTRIBUTION WIDTH 17.1 % (11.0-15.5); WHITE BLOOD COUNT (AUTO) 11.8 K/uL (4.8-10.8)
[2018-12-09] MEDS ORDERED: METOPROLOL TARTRATE 1 MG/ML 5ML VIAL IV ONE (11:45)
[2018-12-09 11:54] LABS: CREATININE 1.1 mg/dL (0.5-1.5); POTASSIUM 3.4 mmol/L (3.5-5.1)
[2018-12-09] MEDS ORDERED: ASPIRIN 325 MG TABLET ONE (11:56)
[2018-12-09 12:00] LABS: INR 0.98 (0.85-1.15); PARTIAL THROMBOPLASTIN TIME 24.9 SEC (26.3-35.5); PROTHROMBIN TIME 10.3 SEC (9.6-11.6)
[2018-12-09] MEDS ORDERED: CEFTRIAXONE SODIUM 1 GM ONE (12:00)
[2018-12-09] MEDS ORDERED: LEVOFLOXACIN 500 MG/D5W 100 ML 100 ML ONE (12:00)
[2018-12-09] MEDS ORDERED: POTASSIUM CHLORIDE 20 MEQ ERTAB PO ONE (12:00)
[2018-12-09 12:01] LABS: ALBUMIN 3.4 g/dL (3.5-5.0); BILIRUBIN,TOTAL 0.3 mg/dL (0.2-1.0); TOTAL PROTEIN, SERUM 7.3 g/dL (6.0-8.3)
[2018-12-09 12:14] LABS: B-TYPE NATRIURETIC PEPTIDE 134 pg/mL (0-100)
[2018-12-09 13:39] LABS: APPEARANCE,URINE Clear (CLEAR); BILIRUBIN,URINE Negative (NEGATIVE); COLOR,URINE Yellow (YELLOW); GLUCOSE, URINE (UA) Negative (NEGATIVE); KETONES,URINE Negative (NEGATIVE); LEUKOCYTE ESTERASE ,URINE Trace (NEGATIVE); NITRATE,URINE Negative (NEGATIVE); OCCULT BLOOD,URINE Negative (NEGATIVE); PROTEIN,URINE Trace mg/dL (NEGATIVE); UROBILINOGEN,URINE 0.2 mg/dL (0.2-1.0)
[2018-12-09 13:51] LABS: RBC,URINE 0-1 /HPF (0-1); WBC,URINE 0-1 /HPF (0-1)
[2018-12-09 13:53] LABS: BACTERIA,URINE Rare /HPF (None Seen); MUCUS,URINE Rare LPF (None Seen); SQUAMOUS EPITHELIAL CELL,UR Rare /HPF (0-2)
[2018-12-09] MEDS: ENOXAPARIN SODIUM 30 MG/0.3 ML SQ SCH (15:26)
[2018-12-09 18:34] LABS: CREATINE KINASE, TOTAL 61 U/L (21-232); MYOGLOBIN 53 ng/mL (10-92); TROPONIN I < 0.04 ng/mL (0.00-0.06)
[2018-12-09] MEDS: ALBUTEROL SULFATE 0.083% 2.5 MG/3 ML INH IH SCH ×2 (19:11→23:37)
[2018-12-10 01:06] LABS: CREATINE KINASE, TOTAL 46 U/L (21-232); MYOGLOBIN 46 ng/mL (10-92); TROPONIN I < 0.04 ng/mL (0.00-0.06)
--- NOTE | 2018-12-10 02:40 | NUR ---
ADMISSION NOTE Received to floor per wheelchair. Amb indep. Placed in bed with head of bed elevated. AOx3, fully awake and responsive. Admission care assessment done. VS checked and recorded. ( see flow chart) Plan of care initiated. Oriented to room and used of call light. Policies and procedures explained. Verbalized understanding. Hooked to telemetry at bedside with NSR 70's. Denies feeling of discomfort. IV site to LAC #20 gauge , SL - patent and intact. Monitored and observed for any unusual changes. No apparent distress noted. Cared for and needs attended. Endorsed accordingly.
[2018-12-10] MEDS ORDERED: LINA72CA PO (03:40)
[2018-12-10] MEDS ORDERED: ASPI-555 PO (03:40)
[2018-12-10] MEDS ORDERED: DOXY100C2 PO (03:40)
[2018-12-10] MEDS ORDERED: AZIT500T4 PO (03:40)
[2018-12-10] MEDS ORDERED: NEOM10DR44 OT (03:40)
[2018-12-10] MEDS ORDERED: PRED20TA3 PO (03:40)
[2018-12-10 03:45] VITALS: BP 139/85
[2018-12-10] MEDS ORDERED: HYDROCODONE/ACETAMINOPHEN 7.5/325 MG TAB PO PRN (04:45)
[2018-12-10 06:37] LABS: CREATINE KINASE, TOTAL 31 U/L (21-232); MYOGLOBIN 52 ng/mL (10-92); TROPONIN I < 0.04 ng/mL (0.00-0.06)
[2018-12-10] MEDS: ALBUTEROL SULFATE 0.083% 2.5 MG/3 ML INH IH SCH (06:55)
[2018-12-10 07:30] VITALS: BP 139/78
[2018-12-10] MEDS: IPRATROPIUM 0.5 MG/2.5 ML INH IH SCH ×3 (08:00→21:47)
[2018-12-10] MEDS: LINZESS 72 MCG PO SCH (09:00)
[2018-12-10] MEDS: [UNRECOGNIZED DRUG - OTHER] OTIC SCH ×3 (09:00→20:09)
[2018-12-10] MEDS: PREDNISONE 20 MG TABLET PO SCH (09:39)
[2018-12-10] MEDS: SERTRALINE HCL 50 MG TABLET PO SCH ×2 (09:39→20:08)
[2018-12-10] MEDS: LISINOPRIL 20 MG TABLET PO SCH (09:39)
[2018-12-10] MEDS: ASPIRIN 81MG TAB.CHEW PO SCH (09:39)
[2018-12-10] MEDS: PANTOPRAZOLE SODIUM 40 MG TABLET.DR PO SCH (09:39)
[2018-12-10] MEDS: FINASTERIDE 5 MG TABLET PO SCH (09:39)
[2018-12-10] MEDS: DOXYCYCLINE HYCLATE 100 MG TABLET PO SCH ×2 (09:39→20:08)
[2018-12-10] MEDS: ENOXAPARIN SODIUM 30 MG/0.3 ML SQ SCH (09:40)
[2018-12-10 11:00] VITALS: BP 134/76
[2018-12-10 12:25] LABS: CREATINE KINASE, TOTAL 36 U/L (21-232); MYOGLOBIN 57 ng/mL (10-92); TROPONIN I < 0.04 ng/mL (0.00-0.06)
[2018-12-10 15:30] VITALS: BP 154/87
--- NOTE | 2018-12-10 15:50 | NUR ---
DCP CM met with pt and family discussed dcp plans. Pt is independent prior to admission, lives at home with spouse. Has a cane, walker, provider 2.5hrs/day, nebulizer, cane. Pt feels safe to go back home, spouse and daughter able to assist with transportation and needs as necessary. DC plan to home once stable. CM to cont to follow up. Addendum: 12/10/18 at 1553 by ANALIA FARLEY LVN CM Amended: Links added.
[2018-12-10 20:00] VITALS: BP 123/68
[2018-12-10] MEDS: CEFTRIAXONE SODIUM 1 GM IVP SCH (20:08)
[2018-12-10] MEDS: MECLIZINE HCL 25 MG TABLET PO PRN (20:09)
--- NOTE | 2018-12-10 20:09 | NUR ---
DIZZY Pt medicated with Meclizine for dizziness.
--- NOTE | 2018-12-10 21:09 | NUR ---
MED EFFECT Pt denies feeling dizzy.
[2018-12-11] VITALS: BP 145/71
[2018-12-11] MEDS ORDERED: ALBUTEROL SULFATE 0.083% 2.5 MG/3 ML INH IH SCH
[2018-12-11 04:00] VITALS: BP 143/83
[2018-12-11 04:48] LABS: BASOPHILS % (AUTO) 0.5 % (0.0-5.0); EOSINOPHILS % (AUTO) 1.2 % (0.0-8.0); HEMATOCRIT 34.4 % (42-54); MEAN CORPUSCULAR HEMOGLOBIN 26.6 pg (27.0-33.0); MEAN CORPUSCULAR HGB CONC 32.9 g/dL (32.0-36.0); MEAN CORPUSCULAR VOLUME 80.7 fL (79-99); NEUTROPHILS % (AUTO) 70.3 % (40.0-77.0); NUCLEATED RED BLOOD CELLS 0.1 % (0.0-0.19); PLATELET COUNT (AUTO) 341 K/uL (130-400); RED BLOOD CELL COUNT(AUTO) 4.26 MIL/uL (4.50-6.20); RED CELL DISTRIBUTION WIDTH 16.5 % (11.0-15.5); WHITE BLOOD COUNT (AUTO) 10.5 K/uL (4.8-10.8)
[2018-12-11 04:59] LABS: POTASSIUM 3.6 mmol/L (3.5-5.1)
[2018-12-11] MEDS: IPRATROPIUM 0.5 MG/2.5 ML INH IH SCH ×3 (06:19→21:55)
[2018-12-11 07:57] VITALS: BP 148/84
[2018-12-11] MEDS: [UNRECOGNIZED DRUG - OTHER] OTIC SCH ×3 (09:00→20:26)
[2018-12-11] MEDS: LINZESS 72 MCG PO SCH (09:00)
[2018-12-11] MEDS: PANTOPRAZOLE SODIUM 40 MG TABLET.DR PO SCH (10:16)
[2018-12-11] MEDS: LISINOPRIL 20 MG TABLET PO SCH (10:16)
[2018-12-11] MEDS: ASPIRIN 81MG TAB.CHEW PO SCH (10:16)
[2018-12-11] MEDS: SERTRALINE HCL 50 MG TABLET PO SCH ×2 (10:16→20:25)
[2018-12-11] MEDS: FINASTERIDE 5 MG TABLET PO SCH (10:16)
[2018-12-11] MEDS: PREDNISONE 20 MG TABLET PO SCH (10:16)
[2018-12-11] MEDS: MECLIZINE HCL 25 MG TABLET PO PRN (10:16)
[2018-12-11] MEDS: DOXYCYCLINE HYCLATE 100 MG TABLET PO SCH ×2 (10:16→20:25)
[2018-12-11] MEDS: ENOXAPARIN SODIUM 30 MG/0.3 ML SQ SCH (10:17)
[2018-12-11 11:34] VITALS: BP 153/85
[2018-12-11 16:05] VITALS: BP 130/83
--- NOTE | 2018-12-11 16:08 | NUR ---
CM Note: Pt does not qualify for home O2. O2 sat in RA on ambulation 92%. Primary nurse aware. dcp to home once stable. CM to cont to follow up.
[2018-12-11] MEDS ORDERED: IOHEXOL-350 75 ML VIAL IV ONE (19:27)
[2018-12-11] MEDS: CEFTRIAXONE SODIUM 1 GM IVP SCH (19:42)
[2018-12-11 20:00] VITALS: BP 143/85
[2018-12-12] VITALS (7 sets, daily range): BP systolic 114–153; BP diastolic 60–97
[2018-12-12] MEDS: IPRATROPIUM 0.5 MG/2.5 ML INH IH SCH ×3 (06:50→21:35)
[2018-12-12] MEDS: ASPIRIN 81MG TAB.CHEW PO SCH (08:59)
[2018-12-12] MEDS: SERTRALINE HCL 50 MG TABLET PO SCH ×2 (09:00→19:52)
[2018-12-12] MEDS: FINASTERIDE 5 MG TABLET PO SCH (09:00)
[2018-12-12] MEDS: LINZESS 72 MCG PO SCH (09:00)
[2018-12-12] MEDS: PREDNISONE 20 MG TABLET PO SCH (09:00)
[2018-12-12] MEDS: LISINOPRIL 20 MG TABLET PO SCH (09:00)
[2018-12-12] MEDS: DOXYCYCLINE HYCLATE 100 MG TABLET PO SCH ×2 (09:00→19:52)
[2018-12-12] MEDS: [UNRECOGNIZED DRUG - OTHER] OTIC SCH ×3 (09:00→19:52)
[2018-12-12] MEDS: PANTOPRAZOLE SODIUM 40 MG TABLET.DR PO SCH (09:00)
[2018-12-12] MEDS: ENOXAPARIN SODIUM 30 MG/0.3 ML SQ SCH (09:01)
[2018-12-12] MEDS: CEFTRIAXONE SODIUM 1 GM IVP SCH (19:52)
[2018-12-13 04:12] VITALS: BP 153/92
[2018-12-13] MEDS: IPRATROPIUM 0.5 MG/2.5 ML INH IH SCH (06:21)
[2018-12-13 07:43] VITALS: BP 109/71
[2018-12-13] MEDS: SERTRALINE HCL 50 MG TABLET PO SCH (08:02)
[2018-12-13] MEDS: DOXYCYCLINE HYCLATE 100 MG TABLET PO SCH (08:02)
[2018-12-13] MEDS: PANTOPRAZOLE SODIUM 40 MG TABLET.DR PO SCH (08:02)
[2018-12-13] MEDS: PREDNISONE 20 MG TABLET PO SCH (08:02)
[2018-12-13] MEDS: FINASTERIDE 5 MG TABLET PO SCH (08:02)
[2018-12-13] MEDS: ASPIRIN 81MG TAB.CHEW PO SCH (08:02)
[2018-12-13] MEDS: LISINOPRIL 20 MG TABLET PO SCH (08:02)
[2018-12-13] MEDS: ENOXAPARIN SODIUM 30 MG/0.3 ML SQ SCH (08:03)
[2018-12-13] MEDS: [UNRECOGNIZED DRUG - OTHER] OTIC SCH ×2 (08:04→14:00)
[2018-12-13] MEDS: LINZESS 72 MCG PO SCH (08:04)
[2018-12-13 11:08] VITALS: BP 109/58
--- NOTE | 2018-12-13 14:00 | NUR ---
DISCHARGE INSTRUCTIONS GIVEN. PATIENT INSTRUCTED TO SEE DR. SPAULDING TOMORROW. START ON AUGMENTIN PRESCRIBED. IV DISCONTINUED WITH INNER CANNULA INTACT. ALL QUESTIONS ANSWERED.
== END 2018-12-13 14:15 | disposition home or self-care (01) | DRG 194 ==
LOC: EDH 11:15 → EDHIP 12:29 → 3DH 12-10 02:52
PROVIDERS: ADMIT Internal Medicine; ATTEND Internal Medicine
DX: J18.9 Pneumonia, unspecified organism (principal); I47.1 Supraventricular tachycardia; J44.0 Chronic obstructive pulmonary disease with (acute) lower respiratory infection; J44.1 Chronic obstructive pulmonary disease with (acute) exacerbation; D64.9 Anemia, unspecified; G20 Parkinson's disease; I45.10 Unspecified right bundle-branch block; N18.9 Chronic kidney disease, unspecified; N40.0 Benign prostatic hyperplasia without lower urinary tract symptoms; R09.02 Hypoxemia
CPT/HCPCS: 36415; 71045; 71275; 80048; 80053; 81001; 82550; 83605; 83735; 83874; 83880; 84484; 85025; 85610; 85730; 87040; 87804; 93005; 94640; 94664; 94760; 99291; G0378; J0696; J1650; J1956; J3490; J7030; Q9967

== ENCOUNTER 2018-12-21 16:50 | Observation (INO) | payer MEDICARE ==
[~2018-12-21] VITALS: Ht 162.6 cm; Wt 106.5 kg
[~2018-12-21 16:50] MED LIST changes: +ASPI-555 PO; +AZIT500T4 PO; -FAMO20TA8 PO; +NEOM10DR44 OT; +PRED20TA3 PO
[2018-12-21] MEDS ORDERED: DILTIAZEM HCL 125 MG/25 ML VIAL IV ONE (17:04)
[2018-12-21] MEDS ORDERED: SODIUM CHLORIDE 0.9% 100 ML IV ONE (17:05)
[2018-12-21] MEDS ORDERED: ACETAMINOPHEN 325 MG TAB PO PRN (17:30)
[2018-12-21] MEDS ORDERED: ZOLPIDEM TARTRATE 5 MG TAB PO PRN (17:30)
[2018-12-21] MEDS ORDERED: DIPHENHYDRAMINE HCL 25 MG CAPSULE PO PRN (17:30)
[2018-12-21] MEDS ORDERED: DILTIAZEM 125MG/125ML NS IV PRN (17:30)
[2018-12-21] MEDS ORDERED: NITROGLYCERIN 0.4 MG SL TAB SL PRN (17:30)
[2018-12-21 17:34] LABS: BASOPHILS % (AUTO) 0.6 % (0.0-5.0); HEMATOCRIT 38.3 % (42-54); LYMPHOCYTES % (AUTO) 7.9 % (21.0-51.0); MEAN CORPUSCULAR HEMOGLOBIN 25.4 pg (27.0-33.0); MEAN CORPUSCULAR HGB CONC 31.5 g/dL (32.0-36.0); MEAN CORPUSCULAR VOLUME 80.6 fL (79-99); MONOCYTES % (AUTO) 4.9 % (3.0-13.0); NEUTROPHILS % (AUTO) 86.6 % (40.0-77.0); PLATELET COUNT (AUTO) 309 K/uL (130-400); RED BLOOD CELL COUNT(AUTO) 4.75 MIL/uL (4.50-6.20); RED CELL DISTRIBUTION WIDTH 16.6 % (11.0-15.5); WHITE BLOOD COUNT (AUTO) 13.4 K/uL (4.8-10.8)
[2018-12-21 17:37] LABS: CARBON DIOXIDE 25 mmol/L (21-32); CHLORIDE 108 mmol/L (101-111); CREATININE 1.4 mg/dL (0.5-1.5); GLOMERULAR FILTR. RATE CALC 51 mL/min (>60); GLUCOSE,RANDOM 126 mg/dL (70-105); POTASSIUM 4.1 mmol/L (3.5-5.1); SODIUM SERUM 144 mmol/L (136-145); UREA NITROGEN, BLOOD 29 mg/dL (7-18)
[2018-12-21 17:41] LABS: ALANINE AMINOTRANSFERASE 24 U/L (12-78); ALBUMIN 3.2 g/dL (3.5-5.0); ASPARTATE AMINOTRANSFERASE 14 U/L (10-37); BILIRUBIN,DIRECT < 0.1 mg/dL (0.0-0.3); BILIRUBIN,TOTAL 0.2 mg/dL (0.2-1.0); TOTAL PROTEIN, SERUM 6.5 g/dL (6.0-8.3)
--- NOTE | 2018-12-21 17:45 | NUR ---
DIRECT ADMISSION FROM DR ALEGRE'S OFFICE VIA EMERGENCY ROOM, PT AMBULATING FROM GURNEY TO BED, GAIT STEADY AND STRONG WITH STAND BY ASSIST. PT DENIES PAIN, DIZZINESS BUT DOES C/O DYSPNEA ON EXERTION, TELE MONITOR DISPLAYS NORMAL SINUS RHYTHM. PT RESTING COMFORTABLY, CALL LIGHT WITHIN REACH.
[2018-12-21 17:46] VITALS: BP 131/74
[2018-12-21 17:49] LABS: CREATINE KINASE, TOTAL 73 U/L (21-232); MYOGLOBIN 63 ng/mL (10-92); THYROID STIMULATING HORMONE 1.05 uIU/mL (0.36-3.74); TROPONIN I < 0.04 ng/mL (0.00-0.06)
--- NOTE | 2018-12-21 18:00 | NUR ---
DR ALEGRE AT BEDSIDE UPDATE GIVEN, ORDERS RECEIVED
[2018-12-21 18:27] LABS: PLATELET MORPHOLOGY PLT CLUMPS PRESENT
--- NOTE | 2018-12-21 18:30 | NUR ---
DR MOORE AT BEDSIDE UPDATE GIVEN, ORDERS RECEIVED.
[2018-12-21 19:30] VITALS: BP 105/59
[2018-12-21] MEDS: METOPROLOL TARTRATE 25 MG TAB PO SCH (20:19)
[2018-12-21 23:13] VITALS: BP 116/69
[2018-12-21 23:51] LABS: CREATINE KINASE, TOTAL 51 U/L (21-232); MYOGLOBIN 67 ng/mL (10-92); TROPONIN I < 0.04 ng/mL (0.00-0.06)
[2018-12-22 03:40] VITALS: BP 121/76
[2018-12-22 05:31] LABS: BASOPHILS % (AUTO) 0.8 % (0.0-5.0); EOSINOPHILS % (AUTO) 1.3 % (0.0-8.0); HEMATOCRIT 32.9 % (42-54); MEAN CORPUSCULAR HGB CONC 31.5 g/dL (32.0-36.0); MEAN CORPUSCULAR VOLUME 79.5 fL (79-99); MONOCYTES % (AUTO) 7.7 % (3.0-13.0); NEUTROPHILS % (AUTO) 73.2 % (40.0-77.0); PLATELET COUNT (AUTO) 270 K/uL (130-400); RED BLOOD CELL COUNT(AUTO) 4.13 MIL/uL (4.50-6.20); WHITE BLOOD COUNT (AUTO) 12.1 K/uL (4.8-10.8)
[2018-12-22 05:55] LABS: TROPONIN I 0.16 ng/mL (0.00-0.06)
[2018-12-22 05:59] LABS: THYROID STIMULATING HORMONE 1.07 uIU/mL (0.36-3.74)
--- NOTE | 2018-12-22 06:13 | NUR ---
DR MOORE HERE, MADE AWARE OF CURRENT TROPONIN LEVEL, NO ORDERS RECEIVED.
[2018-12-22 07:00] VITALS: BP 127/71
--- NOTE | 2018-12-22 07:40 | NUR ---
ASSESSMENT ENCOUNTERED PT SITTING ON SIDE OF BED, A&OX3, CALM COOPERATIVE AND DOES NOT APPEAR TO BE IN ANY DISTRESS NOR ANY NEURO DEFICITS PRESENT. PT DENIES PAIN, SOB, NAUSEA. TELE MONITOR DISPLAYS NSR. PT IS AMBULATORY, GAIT STEADY AND STRONG WITH STAND BY ASSIST. CALL LIGHT WITHIN REACH, FAMILY AT BEDSIDE.
[2018-12-22] MEDS: METOPROLOL TARTRATE 25 MG TAB PO SCH (08:37)
[2018-12-22] MEDS: FINASTERIDE 5 MG TABLET PO SCH (08:37)
[2018-12-22] MEDS: LISINOPRIL 20 MG TABLET PO SCH (08:37)
[2018-12-22 11:00] VITALS: BP 119/69
[2018-12-22 16:00] VITALS: BP 120/62
[2018-12-22] MEDS ORDERED: PROPAFENONE HCL 150 MG TABLET PO SCH (18:45)
[2018-12-22 19:21] VITALS: BP 118/65
[2018-12-22] MEDS: PROPAFENONE HCL 150 MG TABLET PO SCH (20:32)
[2018-12-22] MEDS: APIXABAN 5 MG TABLET PO SCH (20:32)
[2018-12-22 23:25] VITALS: BP 118/50
[2018-12-23] MEDS: PROPAFENONE HCL 150 MG TABLET PO SCH ×2 (05:00→12:08)
[2018-12-23 07:00] VITALS: BP 128/72
[2018-12-23] MEDS: FINASTERIDE 5 MG TABLET PO SCH (08:47)
[2018-12-23] MEDS: LISINOPRIL 20 MG TABLET PO SCH (08:47)
[2018-12-23] MEDS: APIXABAN 5 MG TABLET PO SCH (08:47)
[2018-12-23 11:00] VITALS: BP 109/69
--- NOTE | 2018-12-23 11:03 | NUR ---
FILIPE DELA CRUZ met with pt who lives with his Connie Dang [phone]. Pt reports he has a provider Tues thru Friday 2.5 hrs , he is independent of ADLS, has cane and walker, drives, Seen by Dr Edmond and pt uses [facility]. Plan is home at pa Addendum: 12/23/18 at 1107 by JAMAL PATEL Amended: Links added.
== END 2018-12-23 12:40 | disposition home or self-care (01) ==
LOC: EDH 16:50 → EDHIP 16:51 → 2DH 17:38
PROVIDERS: ADMIT Internal Medicine; ATTEND Internal Medicine
DX: I48.0 Paroxysmal atrial fibrillation (principal); E78.5 Hyperlipidemia, unspecified; G20 Parkinson's disease; I25.2 Old myocardial infarction; I12.9 Hypertensive chronic kidney disease with stage 1 through stage 4 chronic kidney disease, or unspecified chronic kidney disease; N18.9 Chronic kidney disease, unspecified; I45.10 Unspecified right bundle-branch block; J44.9 Chronic obstructive pulmonary disease, unspecified; N40.0 Benign prostatic hyperplasia without lower urinary tract symptoms; F32.9 Major depressive disorder, single episode, unspecified; Z86.73 Personal history of transient ischemic attack (TIA), and cerebral infarction without residual deficits; Z90.49 Acquired absence of other specified parts of digestive tract; Z79.899 Other long term (current) drug therapy
CPT/HCPCS: 36415 ×2; 71046; 80048; 80053; 82248; 82550 ×3; 83874 ×3; 84443 ×2; 84484 ×3; 85025 ×2; 93005 ×2; 93306; 99284; G0378 ×44; J3490

== ENCOUNTER 2019-01-16 21:11 | Inpatient (IN) | payer MEDICARE ==
[~2019-01-16] VITALS: Ht 162.6 cm; Wt 107.6 kg
[~2019-01-16 21:11] MED LIST changes: -AZIT500T4 PO; -DOXY100C2 PO; -HYDR-4064 PO; -NEOM10DR44 OT; -PANT40TA25 PO; -PRED20TA3 PO; -SERT100T12 PO
[2019-01-16 21:43] LABS: BASOPHILS % (AUTO) 0.6 % (0.0-5.0); EOSINOPHILS % (AUTO) 2.1 % (0.0-8.0); HEMATOCRIT 35.9 % (42-54); LYMPHOCYTES % (AUTO) 14.4 % (21.0-51.0); MEAN CORPUSCULAR HEMOGLOBIN 24.6 pg (27.0-33.0); MEAN CORPUSCULAR HGB CONC 31.8 g/dL (32.0-36.0); MEAN CORPUSCULAR VOLUME 77.4 fL (79-99); MONOCYTES % (AUTO) 9.9 % (3.0-13.0); PLATELET COUNT (AUTO) 402 K/uL (130-400); RED BLOOD CELL COUNT(AUTO) 4.64 MIL/uL (4.50-6.20); RED CELL DISTRIBUTION WIDTH 17.5 % (11.0-15.5); WHITE BLOOD COUNT (AUTO) 10.4 K/uL (4.8-10.8)
[2019-01-16 21:53] LABS: CREATININE 1.8 mg/dL (0.5-1.5); POTASSIUM 3.5 mmol/L (3.5-5.1)
[2019-01-16 21:56] LABS: PARTIAL THROMBOPLASTIN TIME 30.6 SEC (26.3-35.5); PROTHROMBIN TIME 10.5 SEC (9.6-11.6)
[2019-01-16 21:58] LABS: ALBUMIN 3.3 g/dL (3.5-5.0); BILIRUBIN,TOTAL 0.3 mg/dL (0.2-1.0); TOTAL PROTEIN, SERUM 7.3 g/dL (6.0-8.3)
[2019-01-17] MEDS ORDERED: SODIUM CHLORIDE 0.9% 1000ML 1,000 ML IV ONE (00:23)
[2019-01-17] MEDS ORDERED: ONDANSETRON HCL 4 MG/2 ML VIAL IVP PRN (03:45)
[2019-01-17] MEDS: 1/2 NORMAL SALINE 1,000 ML IV SCH ×2 (03:45→17:05)
[2019-01-17] MEDS ORDERED: MORPHINE SULFATE 4 MG/1ML SYG ONE (04:21)
[2019-01-17 04:59] LABS: BASOPHILS % (AUTO) 0.7 % (0.0-5.0); EOSINOPHILS % (AUTO) 2.4 % (0.0-8.0); LYMPHOCYTES % (AUTO) 16.7 % (21.0-51.0); MEAN CORPUSCULAR HEMOGLOBIN 24.8 pg (27.0-33.0); MEAN CORPUSCULAR HGB CONC 31.8 g/dL (32.0-36.0); MEAN CORPUSCULAR VOLUME 78.1 fL (79-99); MONOCYTES % (AUTO) 9.3 % (3.0-13.0); NEUTROPHILS % (AUTO) 70.9 % (40.0-77.0); PLATELET COUNT (AUTO) 300 K/uL (130-400); RED CELL DISTRIBUTION WIDTH 17.2 % (11.0-15.5); WHITE BLOOD COUNT (AUTO) 8.3 K/uL (4.8-10.8)
[2019-01-17 05:07] LABS: CREATININE 1.3 mg/dL (0.5-1.5); POTASSIUM 3.6 mmol/L (3.5-5.1)
[2019-01-17] MEDS ORDERED: 1/2 NORMAL SALINE 1,000 ML IV ONE (07:59)
[2019-01-17] MEDS: PANTOPRAZOLE 40 MG/VIAL IVP SCH (09:00)
[2019-01-17] MEDS: APIXABAN 5 MG TABLET PO SCH (09:00)
[2019-01-17] MEDS: PROPAFENONE HCL 150 MG TABLET PO SCH ×2 (10:58→20:33)
[2019-01-17] MEDS: LISINOPRIL 20 MG TABLET PO SCH (10:59)
[2019-01-17 14:05] VITALS: BP 170/85
--- NOTE | 2019-01-17 20:30 | NUR ---
MEDS SHIFT ASSESSMENT DONE, PLEASE REFER TO CHART. DUE MEDS ADMINISTERED, TOLERATED WELL. KEPT NPO EXCEPT FOR MEDS ORDERED. KEPT RESTED AND COMFORTABLE IN BED. RE-ITERATED FALL PRECAUTIONS. URINAL PROVIDED. CALL LIGHT WITHIN REACH. WILL MONITOR CLOSELY. Addendum: 01/17/19 at 2143 by JULIO LEON RN RN Amended: Links added.
[2019-01-17] MEDS: MORPHINE SULFATE 4 MG/1ML SYG IVP PRN (20:33)
[2019-01-17 21:01] VITALS: BP 147/67
[2019-01-17] MEDS ORDERED: PROP150T28 PO (21:24)
[2019-01-17] MEDS ORDERED: ONDA4TAB10 PO (21:24)
[2019-01-17] MEDS ORDERED: TYL3 PO (21:24)
[2019-01-17] MEDS ORDERED: HYDR25TA PO (21:24)
[2019-01-17] MEDS ORDERED: FAMO40TA75 PO (21:24)
[2019-01-17] MEDS ORDERED: BACL10TA PO (21:24)
[2019-01-17] MEDS ORDERED: PANT40TA25 PO (21:24)
[2019-01-17] MEDS ORDERED: APIX5TAB PO (21:24)
--- NOTE | 2019-01-17 23:00 | NUR ---
ROOM PT TRANSFERRED TO ROOM 319 FOR CLOSER MONITORING. KEPT COMFORTABLE AND RESTED IN BED. CALL LIGHT WITHIN REACH. BED ALARM ACTIVATED.
[2019-01-18] VITALS (7 sets, daily range): BP systolic 106–146; BP diastolic 53–79
[2019-01-18] MEDS: 1/2 NORMAL SALINE 1,000 ML IV SCH ×3 (01:49→19:45)
--- NOTE | 2019-01-18 02:00 | NUR ---
ROUNDS PT RESTING WELL, NO DISTRESS NOTED. KEPT UNDISTURBED FOR NOW. CALL LIGHT WITHIN REACH. WILL MONITOR PT.
--- NOTE | 2019-01-18 06:00 | NUR ---
ROUNDS PT RESTING WELL, NO DISTRESS NOTED. NO COMPLAINTS VERBALIZED. KEPT COMFORTABLE. FOR MORE CARE.
[2019-01-18 06:28] LABS: HEMATOCRIT 31.4 % (42-54); MEAN CORPUSCULAR HEMOGLOBIN 24.4 pg (27.0-33.0); MEAN CORPUSCULAR HGB CONC 31.3 g/dL (32.0-36.0); MEAN CORPUSCULAR VOLUME 77.9 fL (79-99); PLATELET COUNT (AUTO) 330 K/uL (130-400); RED BLOOD CELL COUNT(AUTO) 4.03 MIL/uL (4.50-6.20); RED CELL DISTRIBUTION WIDTH 17.3 % (11.0-15.5); WHITE BLOOD COUNT (AUTO) 8.7 K/uL (4.8-10.8)
[2019-01-18 06:38] LABS: POTASSIUM 3.9 mmol/L (3.5-5.1)
[2019-01-18] MEDS: PANTOPRAZOLE 40 MG/VIAL IVP SCH (08:49)
[2019-01-18] MEDS: LISINOPRIL 20 MG TABLET PO SCH (08:49)
[2019-01-18] MEDS: APIXABAN 5 MG TABLET PO SCH (08:50)
[2019-01-18] MEDS: PROPAFENONE HCL 150 MG TABLET PO SCH ×3 (08:50→22:05)
--- NOTE | 2019-01-18 19:25 | NUR ---
REPORT RECEIVED REPORT FROM SUSANNE KIRBY NURSE. NURSE'S ROUNDS DONE. PT VISITING WITH FAMILY AT THIS TIME. NO CONCERNS VERBALIZED.
--- NOTE | 2019-01-18 19:45 | NUR ---
INITIAL MET W PT, ALONE, AAOX3, INDP OF ADLS, NO DME, LIVES WITH SPOUSE, DAUGHTER OR SON WILL PROVIDE TRANSPORT; DCP IS HOME, PT HERE W SHARI. PT W ABD PAIN. Addendum: 01/18/19 at 1946 by KRISTA FONSECA RN CM Amended: Links added.
--- NOTE | 2019-01-18 22:05 | NUR ---
MEDS SHIFT ASSESSMENT DONE, PLEASE REFER TO CHART. DUE MEDS ADMINISTERED, TOLERATED WELL. KEPT COMFORTABLE IN BED WITH HOB ELEVATED. MAINTAINED ON O2 AT 2LPM VIA NC. KEPT BED ALARM ON. PT'S SPOUSE AT BEDSIDE AND IS STAYING THE NIGHT. WILL MONITOR PT. Addendum: 01/19/19 at 0009 by JULIO LEON RN RN Amended: Links added.
[2019-01-19] MEDS ORDERED: ACETAMINOPHEN-CODEINE 300/30MG TAB ONE (02:26)
[2019-01-19] MEDS: 1/2 NORMAL SALINE 1,000 ML IV SCH ×3 (02:28→14:29)
--- NOTE | 2019-01-19 02:28 | NUR ---
FEVER PT CALL AND COMPLAINTS OF ABDOMINAL PAINS. TEMPERATURE [id number]=375.2, PT WARM TO TOUCH. REMOVED EXTRA BLANKET. MEDICATED WITH TYLENOL #3 PO, 1 TAB. KEPT COMFORTABLE. WILL RE-ASSESS PT.
[2019-01-19 04:00] VITALS: BP 123/51
[2019-01-19 04:55] LABS: HEMATOCRIT 30.4 % (42-54); MEAN CORPUSCULAR HEMOGLOBIN 24.4 pg (27.0-33.0); MEAN CORPUSCULAR HGB CONC 31.5 g/dL (32.0-36.0); MEAN CORPUSCULAR VOLUME 77.7 fL (79-99); PLATELET COUNT (AUTO) 312 K/uL (130-400); RED BLOOD CELL COUNT(AUTO) 3.91 MIL/uL (4.50-6.20); RED CELL DISTRIBUTION WIDTH 17.5 % (11.0-15.5); WHITE BLOOD COUNT (AUTO) 8.3 K/uL (4.8-10.8)
[2019-01-19 05:15] LABS: ALBUMIN 2.6 g/dL (3.5-5.0); BILIRUBIN,TOTAL 0.4 mg/dL (0.2-1.0); CREATININE 1.1 mg/dL (0.5-1.5); POTASSIUM 3.6 mmol/L (3.5-5.1); TOTAL PROTEIN, SERUM 6.1 g/dL (6.0-8.3)
[2019-01-19 07:00] VITALS: BP 124/54
--- NOTE | 2019-01-19 07:20 | NUR ---
REPORT REPORT GIVEN TO SUSANNE KIRBY NURSE. NURSE'S ROUNDS DONE. PT STILL FAIRLY ASLEEP. FOR MORE CARE.
--- NOTE | 2019-01-19 07:58 | NUR ---
DR ALEGRE IN TO SEE PATIENT ORDERS NPO, LABS IN AM , INCREASE IV FLUID TO 100 CC/HR , BLOOD CULTURES NOW , THEN START ROCEPHIN 1 GM DAILY IV. TYLENOL 650MG FOR TEMPERATURE.
[2019-01-19] MEDS: PROPAFENONE HCL 150 MG TABLET PO SCH ×3 (09:01→20:11)
[2019-01-19] MEDS: APIXABAN 5 MG TABLET PO SCH (09:01)
[2019-01-19] MEDS: PANTOPRAZOLE SODIUM 40 MG TABLET.DR PO SCH (09:01)
[2019-01-19] MEDS: CEFTRIAXONE SODIUM 1 GM IVP SCH (09:01)
[2019-01-19] MEDS: LISINOPRIL 20 MG TABLET PO SCH (09:01)
[2019-01-19 11:00] VITALS: BP 109/57
[2019-01-19] MEDS: MORPHINE SULFATE 4 MG/1ML SYG IVP PRN (14:33)
[2019-01-19 16:00] VITALS: BP 91/44
[2019-01-19 20:00] VITALS: BP 126/81
--- NOTE | 2019-01-19 20:10 | NUR ---
MEDS SHIFT ASSESSMENT DONE, PLEASE REFER TO CHART. DUE MEDS ADMINISTERED, TOLERATED WELL. KEPT COMFORTABLE IN BED. CALL LIGHT WITHIN REACH. KEPT NPO. WILL MONITOR PT. Addendum: 01/20/19 at 0157 by JULIO LEON RN RN Amended: Links added.
[2019-01-19 20:40] LABS: APPEARANCE,URINE Clear (CLEAR); BILIRUBIN,URINE Negative (NEGATIVE); COLOR,URINE Yellow (YELLOW); GLUCOSE, URINE (UA) Negative (NEGATIVE); KETONES,URINE Negative (NEGATIVE); LEUKOCYTE ESTERASE ,URINE Negative (NEGATIVE); NITRATE,URINE Negative (NEGATIVE); OCCULT BLOOD,URINE Negative (NEGATIVE); PH,URINE 5.5 (5.0-8.0); PROTEIN,URINE Negative (NEGATIVE); UROBILINOGEN,URINE 0.2 mg/dL (0.2-1.0)
--- NOTE | 2019-01-19 22:00 | NUR ---
ROUNDS PT STILL AWAKE. NO DISTRESS NOTED. NO COMPLAINTS OF ABDOMINAL PAINS NOR DISCOMFORT. PT ASKING IF HE COULD EAT AND EXPLAINED THAT MD WILL RE-EVALUATE HIM IN AM.
[2019-01-20] VITALS: BP 124/53
[2019-01-20] MEDS: 1/2 NORMAL SALINE 1,000 ML IV SCH ×4 (00:17→22:37)
--- NOTE | 2019-01-20 01:58 | NUR ---
ROUNDS PT RESTING WELL, FAIRLY ASLEEP WITH RESPIRATIONS EVEN AND UNLABORED. NO NOTED DISTRESS. KEPT UNDISTURBED FOR NOW. WILL MONITOR PT.
[2019-01-20 04:00] VITALS: BP 138/73
[2019-01-20 06:27] LABS: MEAN CORPUSCULAR HEMOGLOBIN 24.2 pg (27.0-33.0); MEAN CORPUSCULAR HGB CONC 31.2 g/dL (32.0-36.0); MEAN CORPUSCULAR VOLUME 77.3 fL (79-99); PLATELET COUNT (AUTO) 342 K/uL (130-400); RED BLOOD CELL COUNT(AUTO) 3.88 MIL/uL (4.50-6.20); RED CELL DISTRIBUTION WIDTH 17.5 % (11.0-15.5); WHITE BLOOD COUNT (AUTO) 8.4 K/uL (4.8-10.8)
--- NOTE | 2019-01-20 06:30 | NUR ---
MEDS PT ALREADY AWAKE, RESTING IN THE CHAIR. DUE MEDS ADMINISTERED, TOLERATED WELL. CLAIMS OF VERY MILD ABDOMINAL PAINS BUT REFUSED ANY PAIN MEDS AT THIS TIME. FOR MORE CARE.
[2019-01-20] MEDS: PANTOPRAZOLE SODIUM 40 MG TABLET.DR PO SCH (06:38)
[2019-01-20 06:43] LABS: ALBUMIN 2.6 g/dL (3.5-5.0); BILIRUBIN,TOTAL 0.3 mg/dL (0.2-1.0); CREATININE 0.9 mg/dL (0.5-1.5); POTASSIUM 3.8 mmol/L (3.5-5.1)
--- NOTE | 2019-01-20 07:43 | NUR ---
DR ALEGRE ROUNDED ON PATIENT AND ORDERS FOR US LIVER TODAY , CBC, BMP, LFT , LIPASE IN AM
[2019-01-20 08:00] VITALS: BP 117/64
[2019-01-20] MEDS: APIXABAN 5 MG TABLET PO SCH (08:51)
[2019-01-20] MEDS: CEFTRIAXONE SODIUM 1 GM IVP SCH (08:51)
[2019-01-20] MEDS: PROPAFENONE HCL 150 MG TABLET PO SCH ×3 (08:51→20:38)
[2019-01-20] MEDS: LISINOPRIL 20 MG TABLET PO SCH (08:54)
[2019-01-20 11:00] VITALS: BP 110/67
[2019-01-20] MEDS: MORPHINE SULFATE 4 MG/1ML SYG IVP PRN ×2 (12:20→20:40)
[2019-01-20 16:00] VITALS: BP 131/58
[2019-01-20 19:18] VITALS: BP 98/55
[2019-01-21] VITALS (7 sets, daily range): BP systolic 108–153; BP diastolic 56–97
[2019-01-21 06:20] LABS: HEMATOCRIT 28.6 % (42-54); MEAN CORPUSCULAR HEMOGLOBIN 24.8 pg (27.0-33.0); MEAN CORPUSCULAR HGB CONC 32.1 g/dL (32.0-36.0); MEAN CORPUSCULAR VOLUME 77.3 fL (79-99); PLATELET COUNT (AUTO) 280 K/uL (130-400); RED BLOOD CELL COUNT(AUTO) 3.69 MIL/uL (4.50-6.20); RED CELL DISTRIBUTION WIDTH 16.9 % (11.0-15.5); WHITE BLOOD COUNT (AUTO) 7.5 K/uL (4.8-10.8)
[2019-01-21] MEDS: PANTOPRAZOLE SODIUM 40 MG TABLET.DR PO SCH (06:25)
[2019-01-21 06:31] LABS: ALBUMIN 2.5 g/dL (3.5-5.0); BILIRUBIN,DIRECT 0.1 mg/dL (0.0-0.3); BILIRUBIN,TOTAL 0.3 mg/dL (0.2-1.0); CREATININE 0.8 mg/dL (0.5-1.5); POTASSIUM 3.5 mmol/L (3.5-5.1); TOTAL PROTEIN, SERUM 5.8 g/dL (6.0-8.3)
[2019-01-21] MEDS: LISINOPRIL 20 MG TABLET PO SCH (09:00)
[2019-01-21] MEDS: APIXABAN 5 MG TABLET PO SCH (09:00)
[2019-01-21] MEDS: CEFTRIAXONE SODIUM 1 GM IVP SCH (09:01)
[2019-01-21] MEDS: PROPAFENONE HCL 150 MG TABLET PO SCH ×3 (09:01→20:49)
[2019-01-21] MEDS: 1/2 NORMAL SALINE 1,000 ML IV SCH ×2 (09:02→20:51)
--- NOTE | 2019-01-21 09:16 | NUR ---
Dr. Edmond paged re; u/a negative patient on rocephin, if to d/c, pending call back.
--- NOTE | 2019-01-21 12:51 | NUR ---
Consult for Dr. Steel [facility] for Black tarry stools, left voicemail with call back #.
[2019-01-21] MEDS: ACETAMINOPHEN-CODEINE 300/30MG TAB PO PRN (13:01)
--- NOTE | 2019-01-21 14:56 | NUR ---
Loreto from Dr. Pineda office called back re; consult information was given to loreto re; patient. States will let dr. odonnell now of case.
--- NOTE | 2019-01-21 16:00 | NUR ---
EGD =IN AM WITH MAC. PATIENT AWARE. HOUSE SUP AWARE.
[2019-01-21] MEDS: ACETAMINOPHEN 325 MG TAB PO PRN (18:01)
[2019-01-21] MEDS ORDERED: ACETAMINOPHEN 325 MG TAB PO PRN (18:15)
[2019-01-22] VITALS (18 sets, daily range): BP systolic 118–169; BP diastolic 72–99
[2019-01-22] MEDS: 1/2 NORMAL SALINE 1,000 ML IV SCH ×2 (04:08→16:51)
[2019-01-22] MEDS: MORPHINE SULFATE 4 MG/1ML SYG IVP PRN (04:15)
[2019-01-22 04:53] LABS: BASOPHILS % (AUTO) 0.7 % (0.0-5.0); EOSINOPHILS % (AUTO) 3.4 % (0.0-8.0); HEMATOCRIT 31.4 % (42-54); LYMPHOCYTES % (AUTO) 14.6 % (21.0-51.0); MEAN CORPUSCULAR HEMOGLOBIN 24.7 pg (27.0-33.0); MEAN CORPUSCULAR HGB CONC 32.5 g/dL (32.0-36.0); MEAN CORPUSCULAR VOLUME 75.9 fL (79-99); NEUTROPHILS % (AUTO) 72.3 % (40.0-77.0); PLATELET COUNT (AUTO) 357 K/uL (130-400); RED BLOOD CELL COUNT(AUTO) 4.13 MIL/uL (4.50-6.20); RED CELL DISTRIBUTION WIDTH 17.3 % (11.0-15.5); WHITE BLOOD COUNT (AUTO) 7.1 K/uL (4.8-10.8)
[2019-01-22 05:05] LABS: CREATININE 0.9 mg/dL (0.5-1.5); POTASSIUM 3.5 mmol/L (3.5-5.1)
--- NOTE | 2019-01-22 06:05 | NUR ---
NOTE GI LAB STAFF HERE TO TAKE PATIENT FOR EGD PROCEDURE. SPOUSE ACCOMPANIED.
--- NOTE | 2019-01-22 06:32 | NUR ---
MD ROUNDS DR. LAGOS HERE SAYS MAKING ROUNDS FOR DR. ALEGRE. REPORT GIVEN ON PATIENT. HE REVIEWED LABS IN COMPUTER AND I ANSWERED HIS QUESTIONS. PATIENT CURRENTLY AT EGD. ORDERS RECEIVED FOR HYPOKALEMIA PROTOCOL.
[2019-01-22] MEDS ORDERED: POTASSIUM CHLORIDE 20 MEQ ERTAB PO PRN (06:45)
[2019-01-22] MEDS ORDERED: LIDOCAINE HCL-MPF 1% 2ML VIAL IVP PRN (06:45)
[2019-01-22] MEDS ORDERED: POTASSIUM CHLORIDE 20MEQ/100ML 100 ML IV PRN (06:45)
[2019-01-22] MEDS: PANTOPRAZOLE SODIUM 40 MG TABLET.DR PO SCH (09:38)
[2019-01-22] MEDS: CEFTRIAXONE SODIUM 1 GM IVP SCH (09:38)
[2019-01-22] MEDS: PROPAFENONE HCL 150 MG TABLET PO SCH ×3 (09:39→21:05)
[2019-01-22] MEDS: LISINOPRIL 20 MG TABLET PO SCH (09:39)
--- NOTE | 2019-01-22 15:18 | NUR ---
RDSCREEN - LOS X 5 Pt admitted for pancreatitis, pending EGD results, noted melanotic stools as per EMR. Diet advanced to Clear Liquid this AM. RD to monitor for tolerance. If tolerated, rec to adv as tolerated to Soft diet. RD to follow up. Pt LBM 01/21/19. Pt monitored labs: Co2 33, BUN 5, Glu 115, Alb 2.5, Lipase 505. Please notify RD as additional nutrition concerns arise. Thank you. Addendum: 01/22/19 at [address] Amended: Links added.
[2019-01-22] MEDS: ACETAMINOPHEN-CODEINE 300/30MG TAB PO PRN (21:11)
[2019-01-23] VITALS (7 sets, daily range): BP systolic 125–151; BP diastolic 63–95
[2019-01-23] MEDS: MORPHINE SULFATE 4 MG/1ML SYG IVP PRN (03:36)
[2019-01-23] MEDS: 1/2 NORMAL SALINE 1,000 ML IV SCH ×2 (03:36→22:05)
[2019-01-23] MEDS: PANTOPRAZOLE SODIUM 40 MG TABLET.DR PO SCH (06:02)
--- NOTE | 2019-01-23 07:40 | NUR ---
MD rounds Dr. Bowens in to see patient. Orders received and entered.
[2019-01-23] MEDS: PROPAFENONE HCL 150 MG TABLET PO SCH ×3 (08:13→22:04)
[2019-01-23] MEDS: CEFTRIAXONE SODIUM 1 GM IVP SCH (08:13)
[2019-01-23] MEDS: LISINOPRIL 20 MG TABLET PO SCH (08:14)
--- NOTE | 2019-01-23 17:00 | NUR ---
Return to room Patient was brought back from [facility] med dept via w/c because he could not tolerate being flat on the table for procedure x [address] Potts was made aware. Orders received and entered.
[2019-01-24] MEDS ORDERED: SIMETHICONE 80 MG TAB.CHEW ONE (00:13)
[2019-01-24] MEDS: ACETAMINOPHEN-CODEINE 300/30MG TAB PO PRN ×2 (00:15→20:49)
[2019-01-24 04:13] VITALS: BP 139/74
[2019-01-24 05:53] LABS: BASOPHILS % (AUTO) 0.6 % (0.0-5.0); HEMATOCRIT 30.9 % (42-54); LYMPHOCYTES % (AUTO) 15.5 % (21.0-51.0); MEAN CORPUSCULAR HEMOGLOBIN 24.4 pg (27.0-33.0); MEAN CORPUSCULAR HGB CONC 31.6 g/dL (32.0-36.0); MONOCYTES % (AUTO) 8.2 % (3.0-13.0); NEUTROPHILS % (AUTO) 72.7 % (40.0-77.0); PLATELET COUNT (AUTO) 357 K/uL (130-400); RED BLOOD CELL COUNT(AUTO) 4.01 MIL/uL (4.50-6.20); RED CELL DISTRIBUTION WIDTH 17.6 % (11.0-15.5); WHITE BLOOD COUNT (AUTO) 7.4 K/uL (4.8-10.8)
[2019-01-24 06:11] LABS: CREATININE 0.9 mg/dL (0.5-1.5); POTASSIUM 3.1 mmol/L (3.5-5.1)
[2019-01-24 08:00] VITALS: BP 137/73
[2019-01-24] MEDS: PROPAFENONE HCL 150 MG TABLET PO SCH ×3 (09:19→20:44)
[2019-01-24] MEDS: LISINOPRIL 20 MG TABLET PO SCH (09:19)
[2019-01-24] MEDS: CEFTRIAXONE SODIUM 1 GM IVP SCH (09:19)
[2019-01-24] MEDS: 1/2 NORMAL SALINE 1,000 ML IV SCH ×3 (09:20→20:45)
[2019-01-24] MEDS: ACETAMINOPHEN 325 MG TAB PO PRN (09:37)
[2019-01-24] MEDS: POTASSIUM CHLORIDE 10% ELIXIR 20 MEQ/15 ML UDCUP PO PRN ×3 (09:37→20:44)
[2019-01-24] MEDS ORDERED: LORAZEPAM 2 MG/ML 1 ML VIAL IVP PRN (09:45)
[2019-01-24] MEDS: PANTOPRAZOLE SODIUM 40 MG TABLET.DR PO SCH (09:47)
[2019-01-24 12:00] VITALS: BP 113/65
[2019-01-24 16:00] VITALS: BP 120/75
[2019-01-24 20:42] VITALS: BP 131/68
[2019-01-24] MEDS: SIMETHICONE 80 MG TAB.CHEW PO PRN (20:44)
[2019-01-24 23:39] VITALS: BP 120/76
[2019-01-25 04:35] VITALS: BP 127/72
[2019-01-25] MEDS: 1/2 NORMAL SALINE 1,000 ML IV SCH (06:26)
[2019-01-25] MEDS ORDERED: COMPOUND IV MISC 1 EACH IVSOLN MISC PRN (06:45)
[2019-01-25 08:00] VITALS: BP 136/79
[2019-01-25] MEDS: PANTOPRAZOLE SODIUM 40 MG TABLET.DR PO SCH (08:39)
[2019-01-25] MEDS: LISINOPRIL 20 MG TABLET PO SCH (08:39)
[2019-01-25] MEDS: CEFTRIAXONE SODIUM 1 GM IVP SCH (08:39)
[2019-01-25] MEDS: PROPAFENONE HCL 150 MG TABLET PO SCH (08:39)
[2019-01-25] MEDS ORDERED: IRON SUCROSE COMPLEX 100 MG in SODIUM CHLORIDE 0.9% 50 ML IV SCH (09:00)
[2019-01-25] MEDS: ACETAMINOPHEN-CODEINE 300/30MG TAB PO PRN (09:41)
[2019-01-25] MEDS: SIMETHICONE 80 MG TAB.CHEW PO PRN (09:41)
[2019-01-25 11:00] VITALS: BP 134/74
--- NOTE | 2019-01-25 14:10 | NUR ---
dr. poe was paged to notify him that the patient already tolerated the soft diet and to get an order to discharge the patient. as per night nurse dr. poe verbalized that the patient will possibly be discharge if the diet is tolerated but no progress notes that says that. will wait for his call back.
--- NOTE | 2019-01-25 20:00 | NUR ---
Discharge AMA Pt. fully awake and responsive, not in respiratory distress. Pt. and family couldn't wait for discharge order even if protocol has been explained to them. Pt. signed Discharge AMA form. Pt and family advised to visit the doctor's office in AM for any continuation of home medications and other follow up orders. Pt. verbalized he feels better. Able to tolerate the food and denies feeling of pain. Discharge to home with family and amb indep with a cane. No untoward incident happened.
== END 2019-01-25 20:10 | disposition left against medical advice (07) | DRG 438 ==
LOC: EDH 21:11 → EDHIP 01-17 01:16 → OBSVTOIN 01-17 01:16 → 3CH 01-17 13:55
PROVIDERS: ADMIT Internal Medicine; ATTEND Internal Medicine
PROC: 0DJ08ZZ Inspection of Upper Intestinal Tract, Via Natural or Artificial Opening Endoscopic (ICD-10-PCS; principal; 2019-01-22)
DX: K85.90 Acute pancreatitis without necrosis or infection, unspecified (principal); K29.71 Gastritis, unspecified, with bleeding; E44.0 Moderate protein-calorie malnutrition; Z68.41 Body mass index [BMI] 40.0-44.9, adult; N17.9 Acute kidney failure, unspecified; E86.0 Dehydration; D64.9 Anemia, unspecified; E88.09 Other disorders of plasma-protein metabolism, not elsewhere classified; E87.6 Hypokalemia; I48.0 Paroxysmal atrial fibrillation; K31.89 Other diseases of stomach and duodenum; K31.9 Disease of stomach and duodenum, unspecified; G20 Parkinson's disease; I10 Essential (primary) hypertension; I25.10 Atherosclerotic heart disease of native coronary artery without angina pectoris; J42 Unspecified chronic bronchitis; Z79.01 Long term (current) use of anticoagulants
CPT/HCPCS: 36415; 43235; 71045; 74021; 74176; 76700; 76705; 80048; 80053; 80076; 81003; 82150; 82550; 82948; 83690; 84484; 85025; 85027; 85610; 85730; 87040; 93005; C9113; G0378; J0696; J1756; J2270; J2405; J7030

== ENCOUNTER → 2019-01-29 | Outpatient (CLI) | payer MEDICARE ==
[~2019-01-29] MED LIST changes: -ALBU8.5H8 IH; +APIX5TAB PO; +BACL10TA PO; +FAMO40TA75 PO; +HYDR25TA PO; +ONDA4TAB10 PO; +PANT40TA25 PO; +PROP150T28 PO; +TYL3 PO
== END | disposition home or self-care (01) ==
LOC: RAH 12:32
PROVIDERS: ATTEND Internal Medicine
DX: M47.812 Spondylosis without myelopathy or radiculopathy, cervical region (principal); M25.78 Osteophyte, vertebrae
CPT/HCPCS: 72040

== ENCOUNTER → 2019-02-01 | Outpatient (CLI) | payer MEDICARE | END | disposition home or self-care (01) | LOC: SLP 19:41 | PROVIDERS: ATTEND Internal Medicine Cardiovascular Disease | DX: G47.33 Obstructive sleep apnea (adult) (pediatric) (principal); F32.2 Major depressive disorder, single episode, severe without psychotic features; E66.9 Obesity, unspecified; I10 Essential (primary) hypertension; Z86.73 Personal history of transient ischemic attack (TIA), and cerebral infarction without residual deficits | CPT/HCPCS: 95811 ==

== ENCOUNTER → 2019-02-15 | Outpatient (CLI) | payer MEDICARE ==
--- NOTE | 2019-02-16 05:41 | NUR ---
CPAP FINAL PRESSURE: AUTOSET CPAP MAX 20 CM H2O/ MIN 15 CM H2O. Addendum: 02/16/19 at 0543 by HERMELINDO LANDLT Amended: Links added.
== END | disposition home or self-care (01) ==
LOC: SLP 20:02
PROVIDERS: ATTEND Internal Medicine Cardiovascular Disease
DX: G47.33 Obstructive sleep apnea (adult) (pediatric) (principal); I10 Essential (primary) hypertension; E66.9 Obesity, unspecified; Z68.41 Body mass index [BMI] 40.0-44.9, adult
CPT/HCPCS: 95811

== ENCOUNTER 2019-04-06 03:17 | Emergency (ER) | payer MEDICARE ==
[2019-04-06] MEDS ORDERED: MORPHINE SULFATE 4 MG/1ML SYG ONE (03:52)
[2019-04-06] MEDS ORDERED: ONDANSETRON HCL 4 MG/2 ML VIAL ONE (03:52)
[2019-04-06 04:01] LABS: BILIRUBIN,URINE Negative (NEGATIVE); COLOR,URINE Dark Yellow (YELLOW); GLUCOSE, URINE (UA) Negative (NEGATIVE); KETONES,URINE Trace mg/dL (NEGATIVE); LEUKOCYTE ESTERASE ,URINE Negative (NEGATIVE); NITRATE,URINE Negative (NEGATIVE); OCCULT BLOOD,URINE Trace (NEGATIVE); PROTEIN,URINE Trace mg/dL (NEGATIVE)
[2019-04-06 04:05] LABS: APPEARANCE,URINE HAZY (CLEAR)
[2019-04-06 04:24] LABS: BASOPHILS % (AUTO) 0.8 % (0.0-5.0); EOSINOPHILS % (AUTO) 2.9 % (0.0-8.0); HEMATOCRIT 32.2 % (42-54); LYMPHOCYTES % (AUTO) 23.6 % (21.0-51.0); MEAN CORPUSCULAR HEMOGLOBIN 24.4 pg (27.0-33.0); MEAN CORPUSCULAR HGB CONC 32.4 g/dL (32.0-36.0); MEAN CORPUSCULAR VOLUME 75.2 fL (79-99); MONOCYTES % (AUTO) 7.9 % (3.0-13.0); NEUTROPHILS % (AUTO) 64.8 % (40.0-77.0); PLATELET COUNT (AUTO) 306 K/uL (130-400); RED BLOOD CELL COUNT(AUTO) 4.28 MIL/uL (4.50-6.20); RED CELL DISTRIBUTION WIDTH 19.5 % (11.0-15.5); WHITE BLOOD COUNT (AUTO) 9.2 K/uL (4.8-10.8)
[2019-04-06 04:38] LABS: INR 1.02 (0.85-1.15); PROTHROMBIN TIME 10.7 SEC (9.6-11.6)
[2019-04-06 04:38] LABS: BACTERIA,URINE Few /HPF (None Seen); CALCIUM OXALATE CRYSTALS,UR Moderate /LPF (None Seen); MUCUS,URINE Few LPF (None Seen); RBC,URINE 0-1 /HPF (0-1); SQUAMOUS EPITHELIAL CELL,UR 0-2 /HPF (0-2)
[2019-04-06 04:39] LABS: B-TYPE NATRIURETIC PEPTIDE 10 pg/mL (0-100)
[2019-04-06 04:49] LABS: CREATININE 1.2 mg/dL (0.5-1.5); POTASSIUM 3.5 mmol/L (3.5-5.1)
[2019-04-06 04:56] LABS: BILIRUBIN,DIRECT 0.1 mg/dL (0.0-0.3); BILIRUBIN,TOTAL 0.2 mg/dL (0.2-1.0); TOTAL PROTEIN, SERUM 6.4 g/dL (6.0-8.3)
== END 2019-04-06 06:04 | disposition home or self-care (01) ==
LOC: EDH 03:17
DX: R10.84 Generalized abdominal pain (principal); R19.7 Diarrhea, unspecified; R06.02 Shortness of breath; I25.10 Atherosclerotic heart disease of native coronary artery without angina pectoris; F32.9 Major depressive disorder, single episode, unspecified; E78.5 Hyperlipidemia, unspecified; I12.9 Hypertensive chronic kidney disease with stage 1 through stage 4 chronic kidney disease, or unspecified chronic kidney disease; N18.3 Chronic kidney disease, stage 3 (moderate)
CPT/HCPCS: 36415; 74176; 80048; 80076; 81001; 82550; 83690; 83880; 84484; 85025; 85610; 85730; 93005; 96374; 96375; 99285; J2270; J2405

== ENCOUNTER 2019-05-08 22:34 | Emergency (ER) | payer MEDICARE ==
[2019-05-08 23:22] LABS: BASOPHILS % (AUTO) 1.2 % (0.0-5.0); EOSINOPHILS % (AUTO) 0.6 % (0.0-8.0); HEMATOCRIT 36.2 % (42-54); MEAN CORPUSCULAR HEMOGLOBIN 23.9 pg (27.0-33.0); MEAN CORPUSCULAR HGB CONC 31.6 g/dL (32.0-36.0); MEAN CORPUSCULAR VOLUME 75.7 fL (79-99); MONOCYTES % (AUTO) 7.4 % (3.0-13.0); NEUTROPHILS % (AUTO) 75.8 % (40.0-77.0); PLATELET COUNT (AUTO) 375 K/uL (130-400); RED BLOOD CELL COUNT(AUTO) 4.78 MIL/uL (4.50-6.20); RED CELL DISTRIBUTION WIDTH 20.2 % (11.0-15.5); WHITE BLOOD COUNT (AUTO) 12.7 K/uL (4.8-10.8)
[2019-05-08 23:26] LABS: APPEARANCE,URINE Clear (CLEAR); BILIRUBIN,URINE Small (NEGATIVE); COLOR,URINE Dark Yellow (YELLOW); GLUCOSE, URINE (UA) Negative (NEGATIVE); KETONES,URINE Trace mg/dL (NEGATIVE); LEUKOCYTE ESTERASE ,URINE Negative (NEGATIVE); NITRATE,URINE Negative (NEGATIVE); OCCULT BLOOD,URINE Trace (NEGATIVE); PROTEIN,URINE POS 1+ mg/dL (NEGATIVE)
[2019-05-08] MEDS ORDERED: KETOROLAC TROMETHAMINE 30MG/ML ONE (23:29)
[2019-05-08] MEDS ORDERED: METHYLPREDNISOLONE SOD SUCC 125MG/2ML VIAL ONE (23:29)
[2019-05-08 23:34] LABS: CREATININE 1.1 mg/dL (0.5-1.5); POTASSIUM 4.4 mmol/L (3.5-5.1)
[2019-05-08 23:39] LABS: AMORPHOUS SEDIMENT,UR Moderate /LPF (None Seen); BACTERIA,URINE Rare /HPF (None Seen); MUCUS,URINE Moderate LPF (None Seen); RBC,URINE 0-1 /HPF (0-1); SQUAMOUS EPITHELIAL CELL,UR Moderate /HPF (0-2); WBC,URINE None Seen /HPF (0-1)
== END 2019-05-09 02:40 | disposition home or self-care (01) ==
LOC: EDH 22:34
DX: M54.5 Low back pain (principal); I12.9 Hypertensive chronic kidney disease with stage 1 through stage 4 chronic kidney disease, or unspecified chronic kidney disease; N18.3 Chronic kidney disease, stage 3 (moderate); E78.5 Hyperlipidemia, unspecified; I25.10 Atherosclerotic heart disease of native coronary artery without angina pectoris; M19.90 Unspecified osteoarthritis, unspecified site
CPT/HCPCS: 36415; 73502; 74176; 80048; 81001; 85025; 96372 ×2; 99285; J1885; J2930

== ENCOUNTER 2019-05-28 18:02 | Inpatient (IN) | payer MEDICARE ==
[~2019-05-28] VITALS: Ht 160 cm; Wt 99.7 kg
[2019-05-28 18:47] LABS: BASOPHILS % (AUTO) 0.6 % (0.0-5.0); HEMATOCRIT 36.5 % (42-54); LYMPHOCYTES % (AUTO) 19.5 % (21.0-51.0); MEAN CORPUSCULAR HEMOGLOBIN 24.5 pg (27.0-33.0); MEAN CORPUSCULAR HGB CONC 31.4 g/dL (32.0-36.0); MEAN CORPUSCULAR VOLUME 77.8 fL (79-99); MONOCYTES % (AUTO) 6.7 % (3.0-13.0); NEUTROPHILS % (AUTO) 71.2 % (40.0-77.0); NUCLEATED RED BLOOD CELLS 0.1 % (0.0-0.19); PLATELET COUNT (AUTO) 344 K/uL (130-400); RED BLOOD CELL COUNT(AUTO) 4.69 MIL/uL (4.50-6.20); RED CELL DISTRIBUTION WIDTH 20.6 % (11.0-15.5); WHITE BLOOD COUNT (AUTO) 11.2 K/uL (4.8-10.8)
[2019-05-28 18:57] LABS: CREATININE 2.6 mg/dL (0.5-1.5); POTASSIUM 3.5 mmol/L (3.5-5.1)
[2019-05-28] MEDS ORDERED: FAMOTIDINE/PF 20 MG/2 ML VIAL IV ONE (19:00)
[2019-05-28] MEDS ORDERED: MORPHINE SULFATE 4 MG/1ML SYG ONE (19:00)
[2019-05-28] MEDS ORDERED: ONDANSETRON HCL 4 MG/2 ML VIAL ONE (19:00)
[2019-05-28] MEDS ORDERED: SODIUM CHLORIDE 0.9% 1000ML 1,000 ML IV ONE (19:01)
[2019-05-28 19:02] LABS: ALBUMIN 3.2 g/dL (3.5-5.0); BILIRUBIN,TOTAL 0.4 mg/dL (0.2-1.0); TOTAL PROTEIN, SERUM 7.1 g/dL (6.0-8.3)
[2019-05-28] MEDS ORDERED: CEFTRIAXONE SODIUM 1 GM ONE (23:19)
[2019-05-29] VITALS (7 sets, daily range): BP systolic 101–135; BP diastolic 52–83
--- NOTE | 2019-05-29 01:00 | NUR ---
admission note admit to room 403 via stretcher from er. patient awake, alert,ox3, right nare ngt positive placement via air bolus connected to lis,ivf infusing well, continue npo, no family at bedside, teach plan of care and expected , patient verbalizes understanding via teach back
[2019-05-29] MEDS ORDERED: TERB250T51 PO (01:14)
[2019-05-29] MEDS ORDERED: METO2.5T2 PO (01:14)
[2019-05-29] MEDS ORDERED: METO-408 PO (01:14)
[2019-05-29] MEDS ORDERED: NALO12.5 PO (01:14)
[2019-05-29] MEDS ORDERED: HC2530C TP (01:14)
[2019-05-29] MEDS ORDERED: FURO40TA5 PO (01:14)
[2019-05-29] MEDS ORDERED: HYDR2TAB5 PO (01:14)
[2019-05-29] MEDS ORDERED: HYDROMORPHONE HCL 0.5 MG/0.5 ML ML ONE ×2 (01:40→10:29)
[2019-05-29 03:52] LABS: HEMATOCRIT 31.8 % (42-54); MEAN CORPUSCULAR HEMOGLOBIN 24.5 pg (27.0-33.0); MEAN CORPUSCULAR HGB CONC 32.1 g/dL (32.0-36.0); MEAN CORPUSCULAR VOLUME 76.5 fL (79-99); PLATELET COUNT (AUTO) 316 K/uL (130-400); RED BLOOD CELL COUNT(AUTO) 4.16 MIL/uL (4.50-6.20); WHITE BLOOD COUNT (AUTO) 7.1 K/uL (4.8-10.8)
[2019-05-29 04:14] LABS: CREATININE 1.8 mg/dL (0.5-1.5); MAGNESIUM 1.9 mg/dL (1.80-2.40)
[2019-05-29 04:17] LABS: POTASSIUM 2.9 mmol/L (3.5-5.1)
[2019-05-29] MEDS ORDERED: POTASSIUM CHLORIDE 10% ELIXIR 20 MEQ/15 ML UDCUP PO PRN (05:45)
[2019-05-29] MEDS ORDERED: POTASSIUM CHLORIDE 20 MEQ ERTAB PO PRN (05:45)
[2019-05-29] MEDS ORDERED: LIDOCAINE HCL-MPF 1% 2ML VIAL IV PRN ×2 (05:45)
[2019-05-29] MEDS ORDERED: POTASSIUM CHLORIDE 20MEQ/100ML 100 ML IV PRN (05:45)
[2019-05-29] MEDS ORDERED: LIDOCAINE HCL-MPF 1% 2ML VIAL ONE (05:50)
[2019-05-29] MEDS ORDERED: POTASSIUM CHLORIDE 20MEQ/100ML 100 ML IV ONE (05:50)
[2019-05-29] MEDS: SODIUM CHLORIDE 0.9% 1000ML 1,000 ML IV SCH (06:30)
[2019-05-29] MEDS: CEFTRIAXONE SODIUM 1 GM IVP SCH (06:30)
[2019-05-29] MEDS: POTASSIUM CHLORIDE 20MEQ/100ML 100 ML IV PRN ×2 (09:54→17:38)
[2019-05-29] MEDS: ENOXAPARIN SODIUM 30 MG/0.3 ML SQ SCH (09:54)
--- NOTE | 2019-05-29 10:15 | NUR ---
Nutrition Intervention: Nutrition consult due to poor appetite. Unable to speak with pt. during RD visit. As per nurse, pt. in significant pain and possibly not receptive at this time. Pt. NPO. Pt. with NG tube to LIS which is to be clamped. Labs reviewed(Alb 3.2, BUN 38, Creat 1.8, GFR 38). Noted renal labs improving. LBM: 05/28/19, loose. SR-20, loose. BMI: 38.9, Obesity Grade 2. Recommendations: 1) When medically feasible, rec. Clear Liquids and advance as tolerated to Heart Healthy GI Soft [place] diet. 2) Continue to monitor pt's nutritional status. 3) Consult RD as nutrition concerns arise. Addendum: 05/29/19 at [address] Amended: Links added.
[2019-05-29] MEDS ORDERED: ONDANSETRON HCL 4 MG/2 ML VIAL IVP PRN (14:00)
--- NOTE | 2019-05-29 15:15 | NUR ---
D/C PLAN CM spoke to pts spouse regarding d/c planning. Pt sleeping. States pt has provider about 4 hrs/day. Uses wk for ambulation. States daughter assists with transportation to appointments. Plan to home. No needs verbalized or identified. CM to f/u. Addendum: 05/29/19 at 1517 by FARRUKH ANDERSEN CM Amended: Links added.
[2019-05-29] MEDS: HYDROMORPHONE HCL 0.5 MG/0.5 ML ML IVP PRN (18:06)
[2019-05-30] MEDS: HYDROMORPHONE HCL 0.5 MG/0.5 ML ML IVP PRN ×4 (00:11→19:34)
[2019-05-30] MEDS: SODIUM CHLORIDE 0.9% 1000ML 1,000 ML IV SCH ×3 (00:26→20:47)
[2019-05-30 03:04] VITALS: BP 145/78
[2019-05-30 04:10] LABS: HEMATOCRIT 31.3 % (42-54); MEAN CORPUSCULAR HEMOGLOBIN 25.2 pg (27.0-33.0); MEAN CORPUSCULAR HGB CONC 32.2 g/dL (32.0-36.0); MEAN CORPUSCULAR VOLUME 78.1 fL (79-99); NUCLEATED RED BLOOD CELLS 0.1 % (0.0-0.19); PLATELET COUNT (AUTO) 273 K/uL (130-400); RED BLOOD CELL COUNT(AUTO) 4.01 MIL/uL (4.50-6.20); WHITE BLOOD COUNT (AUTO) 4.7 K/uL (4.8-10.8)
[2019-05-30 04:18] LABS: MAGNESIUM 1.8 mg/dL (1.80-2.40); POTASSIUM 3.3 mmol/L (3.5-5.1)
[2019-05-30 04:23] LABS: BAND NEUTROPHILS % (MANUAL) 24 % (0-2); BASOPHILS % (MANUAL) 2 % (0-2); LYMPHOCYTES % (MANUAL) 32 % (22-44); MAN.DIFF COMMENT-IMPRESSION MANUAL DIFFERENTIAL; MONOCYTES % (MANUAL) 6 % (2-9); PLATELET MORPHOLOGY COMMENT ADEQUATE; SEGMENTED NEUTROPHILS % 36 % (40-70)
[2019-05-30] MEDS: POTASSIUM CHLORIDE 20MEQ/100ML 100 ML IV PRN (04:33)
[2019-05-30] MEDS: CEFTRIAXONE SODIUM 1 GM IVP SCH (05:44)
[2019-05-30 07:38] VITALS: BP 130/77
[2019-05-30] MEDS: ENOXAPARIN SODIUM 30 MG/0.3 ML SQ SCH (09:00)
[2019-05-30] MEDS ORDERED: LORAZEPAM 2 MG/ML 1 ML VIAL IVP SCH (09:45)
[2019-05-30 11:20] VITALS: BP 128/61
[2019-05-30] MEDS ORDERED: MECLIZINE HCL 25 MG TABLET PO PRN (14:00)
--- NOTE | 2019-05-30 14:05 | NUR ---
HOME MEDICATION ELIQUIS PATIENT REPORTS HIS DOCTOR STOPPED HIS HOME MEDICATION ELIQUIS 5MG PO BID APPROXIMATELY "4-5 DAYS AGO" AND HE NO LONGER TAKES THE MEDICATION.
[2019-05-30 16:11] VITALS: BP 128/69
[2019-05-30] MEDS: METOPROLOL TARTRATE 25 MG TAB PO SCH (19:34)
[2019-05-30 19:39] VITALS: BP 130/70
[2019-05-30 23:47] VITALS: BP 122/67
[2019-05-31] MEDS: HYDROMORPHONE HCL 0.5 MG/0.5 ML ML IVP PRN ×6 (00:09→23:19)
[2019-05-31 04:21] VITALS: BP 154/91
[2019-05-31] MEDS: CEFTRIAXONE SODIUM 1 GM IVP SCH (05:38)
[2019-05-31 08:14] VITALS: BP 140/75
[2019-05-31] MEDS: FUROSEMIDE 40 MG TABLET PO SCH (08:38)
[2019-05-31] MEDS: PANTOPRAZOLE SODIUM 40 MG TABLET.DR PO SCH (08:40)
[2019-05-31] MEDS: METOPROLOL TARTRATE 25 MG TAB PO SCH ×2 (08:41→19:17)
[2019-05-31] MEDS: FINASTERIDE 5 MG TABLET PO SCH (08:41)
[2019-05-31] MEDS: LISINOPRIL 20 MG TABLET PO SCH (08:41)
[2019-05-31] MEDS: BACLOFEN 10 MG TABLET PO SCH (08:41)
[2019-05-31] MEDS: TERBINAFINE HCL 250 MG PO SCH (08:43)
[2019-05-31] MEDS: NALOXEGOL OXALATE 12.5 MG PO SCH (08:43)
[2019-05-31] MEDS: ENOXAPARIN SODIUM 30 MG/0.3 ML SQ SCH (08:44)
[2019-05-31] MEDS: METOLAZONE 2.5 MG TABLET PO SCH (08:44)
[2019-05-31 11:09] VITALS: BP 116/66
[2019-05-31] MEDS: SODIUM CHLORIDE 0.9% 1000ML 1,000 ML IV SCH ×2 (12:10→23:47)
[2019-05-31 16:21] VITALS: BP 136/77
[2019-05-31 20:03] VITALS: BP 123/75
[2019-06-01 00:08] VITALS: BP 133/76
[2019-06-01] MEDS ORDERED: HYDROMORPHONE HCL 2 MG/ML VIAL ONE ×2 (03:18→05:59)
[2019-06-01 04:09] VITALS: BP 131/73
[2019-06-01] MEDS: CEFTRIAXONE SODIUM 1 GM IVP SCH (06:08)
[2019-06-01 07:51] VITALS: BP 136/71
[2019-06-01] MEDS: TERBINAFINE HCL 250 MG PO SCH (09:00)
[2019-06-01] MEDS: NALOXEGOL OXALATE 12.5 MG PO SCH (09:00)
[2019-06-01] MEDS: PANTOPRAZOLE SODIUM 40 MG TABLET.DR PO SCH (09:46)
[2019-06-01] MEDS: FUROSEMIDE 40 MG TABLET PO SCH (09:47)
[2019-06-01] MEDS: METOLAZONE 2.5 MG TABLET PO SCH (09:47)
[2019-06-01] MEDS: METOPROLOL TARTRATE 25 MG TAB PO SCH (09:48)
[2019-06-01] MEDS: BACLOFEN 10 MG TABLET PO SCH (09:48)
[2019-06-01] MEDS: FINASTERIDE 5 MG TABLET PO SCH (09:49)
[2019-06-01] MEDS: LISINOPRIL 20 MG TABLET PO SCH (09:49)
[2019-06-01] MEDS: ENOXAPARIN SODIUM 30 MG/0.3 ML SQ SCH (09:50)
[2019-06-01] MEDS: HYDROMORPHONE HCL 0.5 MG/0.5 ML ML IVP PRN (10:04)
[2019-06-01 11:13] VITALS: BP 108/59
--- NOTE | 2019-06-01 11:37 | NUR ---
RD FOLLOW UP DIET: FULL LIQUIDS. PT TOLERATING WELL PER PT. PO INTAKE 100% AND HAS GOOD APPETITE. LBM: 05/31; DIARRHEA NOTED. PT WITH MILD ABDOMINAL PAIN AND PERSISTENT DIARRHEA PER PT. SKIN INTACT, NO EDEMA NOTED. RD RECOMMEND ADVANCE DIET TOLERATED TO GI SOFT/BLAND OFFER ENSURE BID RD WILL CONTINUE TO MONITOR AND F/U NEEDED, THANK YOU. Addendum: 06/01/19 at [address] Amended: Links added.
[2019-06-01] MEDS: SODIUM CHLORIDE 0.9% 1000ML 1,000 ML IV SCH (14:16)
== END 2019-06-01 16:23 | disposition home or self-care (01) | DRG 389 ==
LOC: EDH 18:02 → EDHIP 22:19 → 4AH 05-29 00:39
PROVIDERS: ADMIT Internal Medicine; ATTEND Internal Medicine
PROC: 0D9670Z Drainage of Stomach with Drainage Device, Via Natural or Artificial Opening (ICD-10-PCS; principal; 2019-05-29)
DX: K56.600 Partial intestinal obstruction, unspecified as to cause (principal); I47.1 Supraventricular tachycardia; Z79.01 Long term (current) use of anticoagulants; I48.91 Unspecified atrial fibrillation; N18.9 Chronic kidney disease, unspecified; I12.9 Hypertensive chronic kidney disease with stage 1 through stage 4 chronic kidney disease, or unspecified chronic kidney disease; E87.6 Hypokalemia; E83.42 Hypomagnesemia; E86.0 Dehydration; G20 Parkinson's disease; G89.29 Other chronic pain; J44.9 Chronic obstructive pulmonary disease, unspecified; M54.5 Low back pain; M54.30 Sciatica, unspecified side; Z93.3 Colostomy status
CPT/HCPCS: 36415; 70450; 71045; 74021; 74176; 80048; 80053; 82550; 83690; 83735; 83880; 84132; 84484; 85025; 85027; 93005; G0378; J0696; J1170; J1650; J2270; J2405; J3480; J3490; J7030

== ENCOUNTER 2019-07-17 03:19 | Emergency (ER) | payer MEDICARE ==
[~2019-07-17 03:19] MED LIST changes: -ASPI-555 PO; -FAMO40TA75 PO; +FURO40TA5 PO; +HC2530C TP; -HYDR25TA PO; +HYDR2TAB5 PO; -LINA72CA PO; +METO-408 PO; +METO2.5T2 PO; +NALO12.5 PO; -PROP150T28 PO; +TERB250T51 PO; -TYL3 PO
[2019-07-17] MEDS ORDERED: MORPHINE SULFATE 2 MG/ML 1ML SYG ONE (03:47)
[2019-07-17] MEDS ORDERED: ONDANSETRON HCL 4 MG/2 ML VIAL ONE (03:47)
[2019-07-17] MEDS ORDERED: SODIUM CHLORIDE 0.9% 500ML 500 ML IV ONE (03:48)
[2019-07-17 03:49] LABS: BASOPHILS % (AUTO) 0.6 % (0.0-5.0); EOSINOPHILS % (AUTO) 2.9 % (0.0-8.0); LYMPHOCYTES % (AUTO) 21.6 % (21.0-51.0); MEAN CORPUSCULAR HEMOGLOBIN 23.5 pg (27.0-33.0); MEAN CORPUSCULAR HGB CONC 29.7 g/dL (32.0-36.0); MONOCYTES % (AUTO) 10.4 % (3.0-13.0); NEUTROPHILS % (AUTO) 64.2 % (40.0-77.0); PLATELET COUNT (AUTO) 364 K/uL (130-400); RED BLOOD CELL COUNT(AUTO) 4.43 MIL/uL (4.50-6.20); RED CELL DISTRIBUTION WIDTH 16.9 % (11.0-15.5); WHITE BLOOD COUNT (AUTO) 8.8 K/uL (4.8-10.8)
[2019-07-17 03:58] LABS: POTASSIUM 3.9 mmol/L (3.5-5.1)
[2019-07-17 04:01] LABS: INR 1.01 (0.85-1.15); PARTIAL THROMBOPLASTIN TIME 27.9 SEC (26.3-35.5); PROTHROMBIN TIME 10.6 SEC (9.6-11.6)
[2019-07-17 04:08] LABS: ALBUMIN 3.2 g/dL (3.5-5.0); BILIRUBIN,DIRECT 0.1 mg/dL (0.0-0.3); BILIRUBIN,TOTAL 0.2 mg/dL (0.2-1.0); TOTAL PROTEIN, SERUM 6.9 g/dL (6.0-8.3)
== END 2019-07-17 07:10 | disposition home or self-care (01) ==
LOC: EDH 03:19
DX: K52.9 Noninfective gastroenteritis and colitis, unspecified (principal); I10 Essential (primary) hypertension; F32.9 Major depressive disorder, single episode, unspecified; M19.90 Unspecified osteoarthritis, unspecified site; Z90.49 Acquired absence of other specified parts of digestive tract
CPT/HCPCS: 36415; 74176; 80048; 80076; 83690; 84484; 85025; 85610; 85730; 93005; 96374; 96375; 99285; J2405; J7040

== ENCOUNTER 2019-07-28 17:36 | Observation (INO) | payer MEDICARE ==
[~2019-07-28] VITALS: Ht 182.9 cm; Wt 101.2 kg
[2019-07-28] MEDS ORDERED: 1/2 NORMAL SALINE 1,000 ML IV SCH (18:15)
[2019-07-28 18:23] LABS: BASOPHILS % (AUTO) 0.4 % (0.0-5.0); EOSINOPHILS % (AUTO) 0.1 % (0.0-8.0); HEMATOCRIT 36.1 % (42-54); LYMPHOCYTES % (AUTO) 10.7 % (21.0-51.0); MEAN CORPUSCULAR HEMOGLOBIN 23.2 pg (27.0-33.0); MEAN CORPUSCULAR HGB CONC 29.6 g/dL (32.0-36.0); MEAN CORPUSCULAR VOLUME 78.1 fL (79-99); MONOCYTES % (AUTO) 3.1 % (3.0-13.0); NEUTROPHILS % (AUTO) 85.4 % (40.0-77.0); PLATELET COUNT (AUTO) 383 K/uL (130-400); RED BLOOD CELL COUNT(AUTO) 4.62 MIL/uL (4.50-6.20); RED CELL DISTRIBUTION WIDTH 16.3 % (11.0-15.5); WHITE BLOOD COUNT (AUTO) 10.3 K/uL (4.8-10.8)
[2019-07-28] MEDS ORDERED: ACETAMINOPHEN 325 MG TAB PO PRN (18:30)
[2019-07-28] MEDS ORDERED: BACLOFEN 10 MG TABLET PO SCH (18:30)
[2019-07-28] MEDS ORDERED: ONDANSETRON HCL 4 MG/2 ML VIAL IVP PRN (18:30)
[2019-07-28] MEDS ORDERED: HYDROMORPHONE HCL 2 MG/ML VIAL IVP PRN (18:30)
[2019-07-28] MEDS ORDERED: DIPHENHYDRAMINE HCL 25 MG CAPSULE PO PRN (18:30)
[2019-07-28 18:34] LABS: CREATININE 1.1 mg/dL (0.5-1.5); POTASSIUM 4.2 mmol/L (3.5-5.1)
[2019-07-28 18:37] LABS: ALBUMIN 3.3 g/dL (3.5-5.0); BILIRUBIN,TOTAL 0.3 mg/dL (0.2-1.0); TOTAL PROTEIN, SERUM 7.3 g/dL (6.0-8.3)
[2019-07-28 18:40] LABS: APPEARANCE,URINE Clear (CLEAR); BILIRUBIN,URINE Negative (NEGATIVE); COLOR,URINE Yellow (YELLOW); GLUCOSE, URINE (UA) Negative (NEGATIVE); KETONES,URINE Negative (NEGATIVE); LEUKOCYTE ESTERASE ,URINE Negative (NEGATIVE); NITRATE,URINE Negative (NEGATIVE); OCCULT BLOOD,URINE Nonhemolyzed Trace (NEGATIVE); PH,URINE 6.5 (5.0-8.0); PROTEIN,URINE Trace mg/dL (NEGATIVE)
[2019-07-28 18:56] LABS: BACTERIA,URINE Rare /HPF (None Seen); MUCUS,URINE Few LPF (None Seen); SQUAMOUS EPITHELIAL CELL,UR 0-2 /HPF (0-2); WBC,URINE 0-1 /HPF (0-1)
[2019-07-28] MEDS ORDERED: APIXABAN 2.5 MG TABLET PO ONE (19:02)
[2019-07-28] MEDS ORDERED: BACLOFEN 10 MG TABLET ONE (19:03)
[2019-07-28] MEDS ORDERED: METOPROLOL TARTRATE 25 MG TAB ONE (19:03)
[2019-07-28] MEDS ORDERED: OLANZAPINE 5 MG TAB PO SCH (21:00)
[2019-07-28] MEDS ORDERED: APIXABAN 5 MG TABLET PO SCH (21:00)
[2019-07-29] MEDS ORDERED: 1/2 NORMAL SALINE 1,000 ML IV ONE (04:10)
[2019-07-29] MEDS ORDERED: PANTOPRAZOLE SODIUM 40 MG TABLET.DR PO SCH (09:00)
[2019-07-29] MEDS ORDERED: METOPROLOL SUCCINATE 50 MG TAB.SR.24H PO SCH (09:00)
[2019-07-29] MEDS ORDERED: FAMOTIDINE 20MG TAB 20 MG TAB PO SCH (09:00)
[2019-07-29] MEDS ORDERED: FINASTERIDE 5 MG TABLET PO SCH (09:00)
[2019-07-29] MEDS ORDERED: METRONIDAZOLE 500 MG TABLET ONE (10:04)
[2019-07-29] MEDS ORDERED: APIXABAN 2.5 MG TABLET PO ONE (10:04)
[2019-07-29] MEDS ORDERED: HYDROMORPHONE HCL 2 MG TAB PO PRN (10:15)
[2019-07-29] MEDS ORDERED: INSULIN REGULAR, HUMAN 3ML 100 UNIT in SODIUM CHLORIDE 0.9% 99 ML IV SCH ×2 (10:30)
--- NOTE | 2019-07-29 15:15 | NUR ---
INITIAL PT IN ED 20, W SPOUSE, ACTIVE, INDP, NO DME, DRIVES, SEES DR. ALEGRE AND WANTS TO GO HOME CONTACTED DR ALEGRE TO LET HIM KNOW THAT DR. JOY HAS PRESCRIBED MEDS AND CLEARED HIM AND GIVEN HIM A FOLLOW UP APPT. OK TO DC TO FOLLOW UP WITH [facility], SOFT BLAND DIET UNTIL SEEN . ADVISED PRIMARY RN . THEY WILL SEND A NURSE FROM THE FLOOR TO DC THE PATIENT
[2019-07-29] MEDS ORDERED: SIME125C81 PO (16:45)
[2019-07-29] MEDS ORDERED: LINA145C PO (16:45)
[2019-07-29] MEDS ORDERED: OLAN5TAB27 PO (16:45)
[2019-07-29] MEDS ORDERED: PROP10DR4 OP (16:45)
[2019-07-29] MEDS ORDERED: METO5TAB2 PO (16:45)
[2019-07-29] MEDS ORDERED: PRED20TA3 PO (16:45)
--- NOTE | 2019-07-29 17:25 | NUR ---
NOTE PT WAS VERY ANXIOUS TO GO HOME, PT DID NOT WANT TO CONTINUE WITH THE HISTORY TAKING PROCESS AND WAS VERY UNCOOPERATIVE. PT DISCHARGED WITH HIS IN STABLE CONDITION, DENIES PAIN. DISCHARGE INSTRUCTIONS GIVEN TO AND PT. PRESCRIPTION GIVEN TO AND PT AND INSTRUCTED ON HOW TO TAKE THE NEW MEDS PRESCRIBED BY MD, BOTH VERBALIZED UNDERSTANDING.
--- NOTE | 2019-07-29 17:35 | NUR ---
HOME MEDS PAGED DR. ALEGRE TO GET ORDERS TO RESUME HOME MEDS. WAITING CALL BACK. ALSO PAGED DR. ALEGRE EARLIER REGARDING SAME MATTER.
--- NOTE | 2019-07-29 18:34 | NUR ---
NO CALL BACK FROM DR. ALEGRE. CALLED TO INSTRUCT PT TO ASK DR. ALEGRE AT HIS FOLLOW UP VISIT IN THE MORNING REGARDING RESUMING HIS HOME MEDICATIONS, INCLUDING ELIQUIS. PER PT HE ALREADY TOOK HIS MEDICATIONS, INCLUDING ELIQUIS AND WILL INFORM DR. ALEGRE IN AM.
[2019-07-29] MEDS ORDERED: RANITIDINE HCL 15 MG/1 ML PO SCH (21:00)
[2019-08-04] MEDS ORDERED: PANT40TA PO (00:07)
== END 2019-07-29 17:48 | disposition home or self-care (01) ==
LOC: EDH 17:36 → EDHIP 17:37
PROVIDERS: ADMIT Internal Medicine; ATTEND Internal Medicine
DX: R10.84 Generalized abdominal pain (principal); R14.0 Abdominal distension (gaseous); J44.9 Chronic obstructive pulmonary disease, unspecified; G20 Parkinson's disease; I10 Essential (primary) hypertension; I48.91 Unspecified atrial fibrillation; Z79.899 Other long term (current) drug therapy
CPT/HCPCS: 36415; 74176; 80053; 81001; 82150; 83690; 85025; 93005 ×2; 99284; G0378 ×8; J1815

== ENCOUNTER 2019-08-20 17:41 | Observation (INO) | payer MEDICARE ==
[~2019-08-20] VITALS: Ht 162.6 cm; Wt 96.8 kg
[~2019-08-20 17:41] MED LIST changes: -FURO40TA5 PO; -HC2530C TP; +LINA145C PO; -LISI-613 PO; -MECL-129 PO; -METO2.5T2 PO; +METO5TAB2 PO; -NALO12.5 PO; +OLAN5TAB27 PO; +PANT40TA PO; -PANT40TA25 PO; +PRED20TA3 PO; +PROP10DR4 OP
[2019-08-20] MEDS ORDERED: 1/2 NORMAL SALINE 1,000 ML IV SCH (18:30)
[2019-08-20] MEDS ORDERED: 1/2 NORMAL SALINE 1,000 ML IV ONE (18:41)
[2019-08-20 19:12] LABS: BASOPHILS % (AUTO) 0.1 % (0.0-5.0); EOSINOPHILS % (AUTO) 0.1 % (0.0-8.0); HEMATOCRIT 34.2 % (42-54); LYMPHOCYTES % (AUTO) 15.9 % (21.0-51.0); MEAN CORPUSCULAR HEMOGLOBIN 23.2 pg (27.0-33.0); MEAN CORPUSCULAR HGB CONC 30.4 g/dL (32.0-36.0); MEAN CORPUSCULAR VOLUME 76.3 fL (79-99); MONOCYTES % (AUTO) 7.3 % (3.0-13.0); NEUTROPHILS % (AUTO) 76.3 % (40.0-77.0); PLATELET COUNT (AUTO) 331 K/uL (130-400); RED BLOOD CELL COUNT(AUTO) 4.48 MIL/uL (4.50-6.20); RED CELL DISTRIBUTION WIDTH 17.3 % (11.0-15.5); WHITE BLOOD COUNT (AUTO) 8.7 K/uL (4.8-10.8)
[2019-08-20 20:08] LABS: CREATININE 0.9 mg/dL (0.5-1.5); POTASSIUM 3.5 mmol/L (3.5-5.1)
[2019-08-20 20:10] LABS: ALBUMIN 3.3 g/dL (3.5-5.0); BILIRUBIN,TOTAL 0.6 mg/dL (0.2-1.0); TOTAL PROTEIN, SERUM 6.8 g/dL (6.0-8.3)
[2019-08-20 21:27] VITALS: BP 164/87
[2019-08-20] MEDS ORDERED: DICY20 PO (21:34)
[2019-08-20] MEDS ORDERED: SIME125C92 PO (21:34)
--- NOTE | 2019-08-20 22:00 | NUR ---
NGT NGT PLACED VIA RIGHT NARE USING 16 [employer] CATHETER ,POSITIVE PLACEMENT VIA AIR BOLUS AND ASPIRATION, TOLERATED WELL KEEP NGT TO LIS
[2019-08-20] MEDS ORDERED: ONDANSETRON HCL 4 MG/2 ML VIAL ONE (22:09)
[2019-08-20] MEDS ORDERED: MORPHINE SULFATE 4 MG/1ML SYG ONE (22:09)
[2019-08-20 23:26] VITALS: BP 151/80
[2019-08-21 03:36] VITALS: BP 128/71
[2019-08-21 05:05] LABS: HEMATOCRIT 34.2 % (42-54); MEAN CORPUSCULAR HEMOGLOBIN 23.2 pg (27.0-33.0); MEAN CORPUSCULAR HGB CONC 29.5 g/dL (32.0-36.0); MEAN CORPUSCULAR VOLUME 78.4 fL (79-99); PLATELET COUNT (AUTO) 295 K/uL (130-400); RED BLOOD CELL COUNT(AUTO) 4.36 MIL/uL (4.50-6.20); RED CELL DISTRIBUTION WIDTH 17.3 % (11.0-15.5); WHITE BLOOD COUNT (AUTO) 8.4 K/uL (4.8-10.8)
[2019-08-21 05:15] LABS: BILIRUBIN,TOTAL 0.3 mg/dL (0.2-1.0); CREATININE 0.8 mg/dL (0.5-1.5); POTASSIUM 3.3 mmol/L (3.5-5.1); TOTAL PROTEIN, SERUM 6.4 g/dL (6.0-8.3)
[2019-08-21] MEDS ORDERED: ALPRAZOLAM 0.25 MG TABLET ONE (06:20)
--- NOTE | 2019-08-21 06:23 | NUR ---
ANXIETY C/O ANXIETY, CALLED DR. ALEGRE WITH ORDERS, XANAX 0.25 MG PO GIVEN, NGT CLAMPED X1 HOUR
[2019-08-21] MEDS ORDERED: ALPRAZOLAM 0.25 MG TABLET PO SCH (06:30)
[2019-08-21 07:13] VITALS: BP 145/70
--- NOTE | 2019-08-21 10:00 | NUR ---
Nutrition Intervention: Nutrition consult due to SBO/poor appetite. Pt. asleep during RD visit. Pt. with NG tube to LIS. Pt. NPO. Labs reviewed(Alb 3.0). LBM: 08/20/2019. SR-20, loose. BMI: 36.6, Obesity Grade 2. Recommendations: 1) When medically feasible, rec. Clear Liquids and advance as tolerated to Heart Healthy GI Soft [place] diet. 2) Continue to monitor pt's nutritional status and diet advancement. 3) Consult RD as nutrition concerns arise. Addendum: 08/21/19 at [address] Amended: Links added.
[2019-08-21 10:46] VITALS: BP 136/78
[2019-08-21] MEDS ORDERED: POTASSIUM CHLORIDE 20MEQ/100ML 100 ML IV PRN (11:00)
[2019-08-21] MEDS ORDERED: POTASSIUM CHLORIDE 10% ELIXIR 20 MEQ/15 ML UDCUP PO PRN (11:00)
[2019-08-21] MEDS ORDERED: LIDOCAINE HCL-MPF 1% 2ML VIAL IV PRN (11:00)
[2019-08-21] MEDS ORDERED: POTASSIUM CHLORIDE 20 MEQ ERTAB PO PRN (11:00)
[2019-08-21 15:48] VITALS: BP 122/68
== END 2019-08-21 17:15 | disposition home or self-care (01) ==
LOC: EDH 17:41 → EDHIP 18:00 → 4BH 20:18
PROVIDERS: ADMIT Internal Medicine; ATTEND Internal Medicine
DX: K56.609 Unspecified intestinal obstruction, unspecified as to partial versus complete obstruction (principal); K46.9 Unspecified abdominal hernia without obstruction or gangrene; I48.91 Unspecified atrial fibrillation; I10 Essential (primary) hypertension; F32.9 Major depressive disorder, single episode, unspecified; D64.9 Anemia, unspecified; M19.90 Unspecified osteoarthritis, unspecified site; Z79.01 Long term (current) use of anticoagulants; Z79.899 Other long term (current) drug therapy
CPT/HCPCS: 36415 ×2; 74018; 80053 ×2; 85025; 85027; 99284; G0378 ×23; J2270; J2405

== ENCOUNTER 2021-02-10 15:21 | Emergency (ER) | payer MEDICARE ==
[~2021-02-10] VITALS: Ht 162.6 cm; Wt 100.7 kg
[~2021-02-10 15:21] MED LIST changes: +DICY20TA2 PO; -HYDR2TAB5 PO; -OLAN5TAB27 PO; +OLAN5TAB76 PO; +SIME-12 PO
[2021-02-10 15:22] VITALS: BP 142/88
[2021-02-10 16:59] LABS: BASOPHILS % (AUTO) 0.6 % (0.0-5.0); EOSINOPHILS % (AUTO) 2.7 % (0.0-8.0); HEMATOCRIT 43.2 % (42-54); LYMPHOCYTES % (AUTO) 25.9 % (21.0-51.0); MEAN CORPUSCULAR HEMOGLOBIN 25.8 pg (27.0-33.0); MEAN CORPUSCULAR HGB CONC 30.1 g/dL (32.0-36.0); MEAN CORPUSCULAR VOLUME 85.7 fL (79-99); MONOCYTES % (AUTO) 9.2 % (3.0-13.0); NEUTROPHILS % (AUTO) 61.2 % (40.0-77.0); PLATELET COUNT (AUTO) 347 K/uL (130-400); RED BLOOD CELL COUNT(AUTO) 5.04 MIL/uL (4.50-6.20); RED CELL DISTRIBUTION WIDTH 15.9 % (11.0-15.5); WHITE BLOOD COUNT (AUTO) 11.1 K/uL (4.8-10.8)
[2021-02-10 17:13] LABS: CREATININE 1.1 mg/dL (0.5-1.5); POTASSIUM 3.6 mmol/L (3.5-5.1)
[2021-02-10 17:17] LABS: ALBUMIN 3.1 g/dL (3.5-5.0); BILIRUBIN,TOTAL 0.3 mg/dL (0.2-1.0); TOTAL PROTEIN, SERUM 7.5 g/dL (6.0-8.3)
[2021-02-10 18:22] LABS: BILIRUBIN,URINE Moderate (NEGATIVE); COLOR,URINE Dark Yellow (YELLOW); GLUCOSE, URINE (UA) Negative (NEGATIVE); KETONES,URINE 15 mg/dL (NEGATIVE); LEUKOCYTE ESTERASE ,URINE Moderate (NEGATIVE); NITRATE,URINE Positive (NEGATIVE); OCCULT BLOOD,URINE Negative (NEGATIVE); PH,URINE 5.5 (5.0-8.0); PROTEIN,URINE POS 2+ mg/dL (NEGATIVE)
[2021-02-10 18:28] LABS: APPEARANCE,URINE CLOUDY (CLEAR)
[2021-02-10 18:39] LABS: BACTERIA,URINE Few /HPF (None Seen); MUCUS,URINE Moderate LPF (None Seen); RBC,URINE 0-1 /HPF (0-1); SQUAMOUS EPITHELIAL CELL,UR Few /HPF (0-2)
[2021-02-10 18:40] LABS: CALCIUM OXALATE CRYSTALS,UR Few /LPF (None Seen)
== END 2021-02-10 22:24 | disposition left against medical advice (07) ==
LOC: EDH 15:21
DX: R10.9 Unspecified abdominal pain (principal); Z53.21 Procedure and treatment not carried out due to patient leaving prior to being seen by health care provider
CPT/HCPCS: 36415; 80053; 81001; 82150; 83690; 85025; 87088

== ENCOUNTER 2021-06-05 12:10 | Observation (INO) | payer MEDICARE ==
[~2021-06-05] VITALS: Ht 160 cm; Wt 100.7 kg
[~2021-06-05 12:10] MED LIST changes: -APIX5TAB PO; -DICY20TA2 PO; +FAMO20TA8 PO; -LINA145C PO; +MECL-160 PO; -METO5TAB2 PO; -OLAN5TAB76 PO; +OMEP20CA12 PO; -ONDA4TAB10 PO; -PANT40TA PO; -PRED20TA3 PO; -PROP10DR4 OP; -SIME-12 PO; +TERA2CAP4 PO; -TERB250T51 PO; +TRAZ-185 PO
[2021-06-05 12:54] LABS: BASOPHILS % (AUTO) 0.7 % (0.0-5.0); EOSINOPHILS % (AUTO) 1.7 % (0.0-8.0); HEMATOCRIT 34.8 % (42-54); LYMPHOCYTES % (AUTO) 21.5 % (21.0-51.0); MEAN CORPUSCULAR HEMOGLOBIN 24.6 pg (27.0-33.0); MEAN CORPUSCULAR HGB CONC 29.9 g/dL (32.0-36.0); MEAN CORPUSCULAR VOLUME 82.3 fL (79-99); MONOCYTES % (AUTO) 9.5 % (3.0-13.0); NEUTROPHILS % (AUTO) 66.3 % (40.0-77.0); PLATELET COUNT (AUTO) 408 K/uL (130-400); RED BLOOD CELL COUNT(AUTO) 4.23 MIL/uL (4.50-6.20); RED CELL DISTRIBUTION WIDTH 15.5 % (11.0-15.5); WHITE BLOOD COUNT (AUTO) 10.7 K/uL (4.8-10.8)
[2021-06-05 13:04] LABS: CREATININE 0.9 mg/dL (0.5-1.5); POTASSIUM 3.3 mmol/L (3.5-5.1)
[2021-06-05 13:07] LABS: INR 1.05 (0.85-1.15); PROTHROMBIN TIME 11.4 SEC (9.6-11.6)
[2021-06-05 13:08] LABS: BILIRUBIN,DIRECT 0.1 mg/dL (0.0-0.3); BILIRUBIN,TOTAL 0.2 mg/dL (0.2-1.0); PARTIAL THROMBOPLASTIN TIME 25.4 SEC (26.3-35.5); TOTAL PROTEIN, SERUM 6.8 g/dL (6.0-8.3)
[2021-06-05] MEDS ORDERED: POTASSIUM CHLORIDE 20MEQ/100ML 100 ML IV PRN (14:30)
[2021-06-05] MEDS ORDERED: LIDOCAINE HCL-MPF 1% 2ML VIAL IV PRN (14:30)
[2021-06-05] MEDS ORDERED: KCL 20 MEQ ERTAB PO PRN (14:30)
[2021-06-05] MEDS ORDERED: LACTULOSE 20 GM/30 ML UDCUP PO PRN (15:30)
[2021-06-05] MEDS ORDERED: ACETAMINOPHEN 325 MG TAB PO PRN (15:30)
[2021-06-05] MEDS ORDERED: ZOLPIDEM TARTRATE 5 MG TAB PO PRN (15:30)
[2021-06-05] MEDS ORDERED: GUAIFENESIN-DM 200/20 MG 10 ML PO PRN (15:30)
[2021-06-05] MEDS ORDERED: 0.9%NACL 10ML VIAL IVP SCH (15:30)
[2021-06-05] MEDS ORDERED: DIPHENHYDRAMINE HCL 25 MG CAPSULE PO PRN (15:30)
[2021-06-05] MEDS: POTASSIUM CHLORIDE 10% ELIXIR 20 MEQ/15 ML UDCUP PO PRN ×2 (16:18→19:09)
[2021-06-05] MEDS ORDERED: HYDR12.54 PO (16:37)
[2021-06-05] MEDS ORDERED: IPRA3AMP24 IH (16:37)
[2021-06-05] MEDS ORDERED: LATA7.5D OP (16:37)
[2021-06-05] MEDS ORDERED: ACET-2123 PO (16:37)
[2021-06-05] MEDS ORDERED: TIMO1DRO5 OP (16:37)
[2021-06-05] MEDS ORDERED: CEFU500T67 PO (16:37)
[2021-06-05] MEDS ORDERED: FAMOTIDINE 20MG TAB PO PRN (19:30)
[2021-06-05] MEDS ORDERED: BACLOFEN 10 MG TABLET PO PRN (19:30)
[2021-06-05] MEDS ORDERED: ACETAMINOPHEN 500 MG TABLET PO PRN (19:30)
[2021-06-05] MEDS ORDERED: MECLIZINE HCL 25 MG TABLET PO PRN (19:30)
[2021-06-05] MEDS: CEFUROXIME AXETIL 250 MG TABLET PO SCH (20:47)
[2021-06-05] MEDS ORDERED: LATANOPROST 2.5 ML DROPS OP SCH (21:00)
[2021-06-05] MEDS: IPRATROPIUM/ALBUTEROL SULFATE 3 ML SOLUTION IH SCH (21:48)
[2021-06-06] VITALS (7 sets, daily range): BP systolic 110–151; BP diastolic 59–81
[2021-06-06] MEDS ORDERED: SIMETHICONE 80 MG TAB.CHEW ONE (01:55)
[2021-06-06 05:24] LABS: BASOPHILS % (AUTO) 0.8 % (0.0-5.0); EOSINOPHILS % (AUTO) 2.8 % (0.0-8.0); HEMATOCRIT 38.4 % (42-54); LYMPHOCYTES % (AUTO) 31.4 % (21.0-51.0); MEAN CORPUSCULAR HEMOGLOBIN 24.6 pg (27.0-33.0); MEAN CORPUSCULAR HGB CONC 30.2 g/dL (32.0-36.0); MEAN CORPUSCULAR VOLUME 81.4 fL (79-99); MONOCYTES % (AUTO) 8.3 % (3.0-13.0); NEUTROPHILS % (AUTO) 56.5 % (40.0-77.0); PLATELET COUNT (AUTO) 412 K/uL (130-400); RED BLOOD CELL COUNT(AUTO) 4.72 MIL/uL (4.50-6.20); RED CELL DISTRIBUTION WIDTH 15.3 % (11.0-15.5); WHITE BLOOD COUNT (AUTO) 9.1 K/uL (4.8-10.8)
[2021-06-06 05:36] LABS: CREATININE 0.8 mg/dL (0.5-1.5); POTASSIUM 3.8 mmol/L (3.5-5.1)
[2021-06-06] MEDS: IPRATROPIUM/ALBUTEROL SULFATE 3 ML SOLUTION IH SCH ×2 (06:12→14:00)
[2021-06-06] MEDS ORDERED: PANTOPRAZOLE 40 MG TAB DR PO SCH (07:30)
[2021-06-06] MEDS: CEFUROXIME AXETIL 250 MG TABLET PO SCH (08:29)
[2021-06-06] MEDS ORDERED: HYDROCHLOROTHIAZIDE 25 MG TABLET PO SCH (09:00)
[2021-06-06] MEDS ORDERED: TIMOLOL MALEATE 0.5% 5 ML BOTTLE OP SCH (09:00)
[2021-06-06] MEDS ORDERED: TRAZODONE HCL 50 MG TAB PO SCH (09:00)
[2021-06-06] MEDS ORDERED: METOPROLOL SUCCINATE 50 MG TAB.SR.24H PO SCH (09:00)
[2021-06-06] MEDS ORDERED: FINASTERIDE 5 MG TABLET PO SCH (09:00)
[2021-06-06] MEDS ORDERED: TERAZOSIN 2 MG CAPSULE PO SCH (09:00)
[2021-06-06] MEDS ORDERED: IODIXANOL 320 MG/ML 100 ML VIAL ONE (12:10)
[2021-06-06] MEDS ORDERED: LIDOCAINE HCL 1% MDV 50ML VIAL ONE (12:11)
== END 2021-06-06 17:45 | disposition home or self-care (01) ==
LOC: EDH 12:10 → EDHIP 12:11 → 4CH 06-06 15:23
PROVIDERS: ADMIT Internal Medicine; ATTEND Internal Medicine
DX: I82.402 Acute embolism and thrombosis of unspecified deep veins of left lower extremity (principal); K92.2 Gastrointestinal hemorrhage, unspecified; I48.0 Paroxysmal atrial fibrillation; G20 Parkinson's disease; I10 Essential (primary) hypertension; J44.9 Chronic obstructive pulmonary disease, unspecified; E78.5 Hyperlipidemia, unspecified; N40.0 Benign prostatic hyperplasia without lower urinary tract symptoms; I45.10 Unspecified right bundle-branch block
CPT/HCPCS: 36415 ×2; 37191; 80048 ×2; 80076; 85025 ×2; 85610; 85730; 94640 ×2; 94664; C1769; C1880; C1894; G0378 ×28; J1644; J3490; Q9967

== ENCOUNTER 2023-11-15 16:01 | Emergency (ER) | payer MEDICARE ==
[~2023-11-15] VITALS: Ht 157.5 cm; Wt 100.7 kg
[~2023-11-15 16:01] MED LIST changes: -BACL10TA PO; +ESCI20TA38 PO; +FERR-72 PO; +FINA-37 PO; -FINA5TAB2 PO; -MECL-160 PO; +MECL-302 PO; -TERA2CAP4 PO; +TIMO1DRO9 OP; -TRAZ-185 PO; +TYLENOL ARTHIRITIS PO
[2023-11-15] MEDS: ACETAMINOPHEN 500 MG TABLET PO ONE (16:47)
[2023-11-15] MEDS: LIDOCAINE HCL 1% 20 ML VIAL INJ SCH (16:48)
[2023-11-15] MEDS: CEPHALEXIN 500 MG CAPSULE PO ONE (16:48)
[2023-11-15] MEDS: TETANUS/DIPHTHERIA TOXOID [ADULT] 0.5 ML VIAL IM ONE ×2 (16:53→18:14)
[2023-11-15] MEDS: NEOMY SULF/BACITRA/POLYMYXIN B 1 EACH PACKET TP ONE ×2 (16:53→18:13)
[2023-11-15] MEDS ORDERED: MUPI22O TP (17:38)
[2023-11-15] MEDS ORDERED: CEPH500B PO (17:38)
[2023-11-15 18:15] VITALS: BP 144/74; PULSE 82; RESP 16; O2SAT 98
== END 2023-11-15 18:19 | disposition home or self-care (01) ==
LOC: EDH 16:01
DX: S81.012A Laceration without foreign body, left knee, initial encounter (principal); I10 Essential (primary) hypertension; E78.00 Pure hypercholesterolemia, unspecified; G20.A1 Parkinson's disease without dyskinesia, without mention of fluctuations; Z79.899 Other long term (current) drug therapy; Z90.49 Acquired absence of other specified parts of digestive tract; Z98.890 Other specified postprocedural states; W18.39XA Other fall on same level, initial encounter; Y93.89 Activity, other specified; Y92.89 Other specified places as the place of occurrence of the external cause; Y99.8 Other external cause status
CPT/HCPCS: 12002; 12004; 73562; 90471; 90714